=== PATIENT | male | born 1940 | race Caucasian/White ===

== ENCOUNTER 2017-10-12 08:45 | Outpatient (RCR) | payer MEDICARE, OTHER, SELFPAY ==
[2017-10-12 09:29] LABS: International Normalized Ratio 2.6; Prothrombin Time (Protime)PT. 26.8 SECONDS (11.7-14.9)
== END 2017-10-12 09:00 | disposition home or self-care (01) ==
LOC: LAB 08:45
PROVIDERS: Family Provider Family Medicine; PCP Family Medicine; Visit Provider Internal Medicine Cardiovascular Disease
DX: I48.91 Unspecified atrial fibrillation (principal); Z95.2 Presence of prosthetic heart valve; Z79.899 Other long term (current) drug therapy
CPT/HCPCS: 36415; 85610

== ENCOUNTER 2017-11-12 10:06 | Outpatient (RCR) | payer MEDICARE, OTHER, SELFPAY ==
[2017-11-12 11:14] LABS: International Normalized Ratio 2.6; Prothrombin Time (Protime)PT. 27.1 SECONDS (11.7-14.9)
== END 2017-11-12 10:45 | disposition home or self-care (01) ==
LOC: LAB 10:06
PROVIDERS: Family Provider Family Medicine; PCP Family Medicine; Visit Provider Internal Medicine Cardiovascular Disease
DX: I48.91 Unspecified atrial fibrillation (principal); Z95.2 Presence of prosthetic heart valve; Z79.899 Other long term (current) drug therapy
CPT/HCPCS: 36415; 85610

== ENCOUNTER 2017-12-10 09:51 | Outpatient (RCR) | payer MEDICARE, OTHER, SELFPAY ==
[2017-12-10 10:41] LABS: Prothrombin Time (Protime)PT. 31.5 SECONDS (11.7-14.9)
== END 2017-12-10 10:00 | disposition home or self-care (01) ==
LOC: LAB 09:51
PROVIDERS: Family Provider Family Medicine; PCP Family Medicine; Visit Provider Internal Medicine Cardiovascular Disease
DX: I48.91 Unspecified atrial fibrillation (principal); Z95.2 Presence of prosthetic heart valve; Z79.899 Other long term (current) drug therapy
CPT/HCPCS: 36415; 85610

== ENCOUNTER 2018-01-10 08:41 | Outpatient (RCR) | payer MEDICARE, OTHER, SELFPAY ==
[2018-01-10 10:22] LABS: International Normalized Ratio 2.8; Prothrombin Time (Protime)PT. 29.6 SECONDS (11.7-14.9)
== END 2018-01-10 09:00 | disposition home or self-care (01) ==
LOC: LAB 08:41
PROVIDERS: Family Provider Family Medicine; PCP Family Medicine; Visit Provider Internal Medicine Cardiovascular Disease
DX: I48.91 Unspecified atrial fibrillation (principal); Z95.2 Presence of prosthetic heart valve; Z79.899 Other long term (current) drug therapy
CPT/HCPCS: 36415; 85610

== ENCOUNTER → 2018-01-21 08:25 | Outpatient (CLI) | payer MEDICARE, OTHER, SELFPAY ==
[2018-01-21 10:07] LABS: AST(SGOT) 28 U/L (15-37); Alanine Aminotransfer ALT/SGPT 12 U/L (16-61); Albumin, Serum 3.8 g/dL (3.2-5.0); Alkaline Phosphatase 99 U/L (45-117); Bilirubin, Direct 0.18 mg/dL (0.00-0.30); Cholesterol 104 mg/dL (200); Globulin 3.2 g/dL (2.2-4.2); High Density Lipoprotein 43 mg/dL; Triglycerides 76 mg/dL; Very Low Density Lipoprotein 15 mg/dL (5-40)
== END ==
PROVIDERS: Family Provider Family Medicine; PCP Family Medicine; Visit Provider Physician Assistant Medical
DX: E78.5 Hyperlipidemia, unspecified (principal); Z79.899 Other long term (current) drug therapy
CPT/HCPCS: 36415; 80061; 80076

== ENCOUNTER 2018-02-09 07:09 | Outpatient (RCR) | payer MEDICARE, OTHER, SELFPAY ==
[2018-02-09 08:29] LABS: International Normalized Ratio 3.3; Prothrombin Time (Protime)PT. 33.9 SECONDS (11.7-14.9)
== END 2018-02-09 08:00 | disposition home or self-care (01) ==
LOC: LAB 07:09
PROVIDERS: Family Provider Family Medicine; PCP Family Medicine; Visit Provider Internal Medicine Cardiovascular Disease
DX: I48.91 Unspecified atrial fibrillation (principal); Z95.2 Presence of prosthetic heart valve; Z79.899 Other long term (current) drug therapy
CPT/HCPCS: 36415; 85610

== ENCOUNTER 2018-04-08 09:08 | Outpatient (RCR) | payer MEDICARE, OTHER, SELFPAY ==
[2018-04-08 09:36] LABS: Absolute Lymphocyte Count 1.74 X10^3/ul (0.83-4.51); Basophil# 0.04 X10^3/uL; Basophil% 0.5 % (0-1); Eosinophil# 1.12 X10^3/uL; Eosinophils% 13.1 % (0-5); Hemoglobin 12.8 g/dl (13.0-16.5); Lymphocyte # 1.74 X10^3/ul (4.0); Lymphocyte % 20.3 % (19-41); Mean Corp Hgb Conc 32.8 g/gl (32-36); Mean Corpuscular Volume 91.5 fL (80-94); Mean Platelet Vol. 11.5 fl (6.2-12.0); Monocyte# 0.65 X10^3/uL; Monocyte% 7.6 % (0-10); Neutrophil # 5.01 X10^3/uL (2.7-7.7); Neutrophil % 58.4 % (47-70); Platelet Count 176 K/mm3 (150-450); RBC Distribution Width CV 12.9 % (11.6-14.6); RBC Distribution Width SD 43.1 fl (35.1-43.9); Red Blood Count 4.26 M/mm3 (4.6-6.2); White Blood Count 8.6 K/mm3 (4.4-11.0)
[2018-04-08 09:47] LABS: POSITIVE COUNT NO; POSITIVE DIFFERENTIAL NO; POSITIVE MORPHOLOGY NO
[2018-04-08 10:00] LABS: Anion Gap 6 (5-15); BUN 16 mg/dL (7-18); BUN/Creat Ratio 18.3 RATIO (10-20); Calcium,Total 8.8 mg/dL (8.5-10.1); Chloride 106 mmol/L (98-107); Creatinine, Serum 0.87 mg/dL (0.70-1.30); EST Glomerular Filtration Rate 90 mL/min (>60); Est Glom Filt Rate - Afr Amer 109 mL/min (>60); Glucose 101 mg/dL (74-106); Potassium 4.6 mmol/L (3.5-5.1); Sodium Level 143 mmol/L (136-145)
[2018-04-08 10:42] LABS: Prothrombin Time (Protime)PT. 44.7 SECONDS (11.7-14.9)
[2018-04-08 10:56] LABS: International Normalized Ratio 4.7
== END 2018-04-08 10:00 | disposition home or self-care (01) ==
LOC: LAB 09:08
PROVIDERS: Family Provider Family Medicine; PCP Family Medicine; Visit Provider Internal Medicine Cardiovascular Disease
DX: I48.91 Unspecified atrial fibrillation (principal); Z95.2 Presence of prosthetic heart valve; Z79.899 Other long term (current) drug therapy
CPT/HCPCS: 36415; 80048; 85025; 85610

== ENCOUNTER 2018-05-04 07:42 | Outpatient (RCR) | payer MEDICARE, OTHER, SELFPAY ==
[2018-04-11 09:14] LABS: International Normalized Ratio 1.7; Prothrombin Time (Protime)PT. 20.3 SECONDS (11.7-14.9)
[2018-04-18 11:20] LABS: Prothrombin Time (Protime)PT. 38.2 SECONDS (11.7-14.9)
[2018-04-18 11:21] LABS: International Normalized Ratio 3.9
[2018-04-25 10:26] LABS: Prothrombin Time (Protime)PT. 48.9 SECONDS (11.7-14.9)
[2018-04-25 10:28] LABS: International Normalized Ratio 5.3
[2018-04-27 09:47] LABS: International Normalized Ratio 2.3
[2018-05-04 09:13] LABS: International Normalized Ratio 3.3; Prothrombin Time (Protime)PT. 33.6 SECONDS (11.7-14.9)
== END 2018-05-04 09:00 | disposition home or self-care (01) ==
LOC: LAB 07:42
PROVIDERS: Family Provider Family Medicine; PCP Family Medicine; Visit Provider Internal Medicine Cardiovascular Disease
DX: I48.91 Unspecified atrial fibrillation (principal); Z95.2 Presence of prosthetic heart valve; Z79.899 Other long term (current) drug therapy
CPT/HCPCS: 36415; 85610

== ENCOUNTER 2018-05-30 08:46 | Outpatient (RCR) | payer MEDICARE, OTHER, SELFPAY ==
[2018-05-18 10:27] LABS: International Normalized Ratio 4.4
[2018-05-23 09:35] LABS: International Normalized Ratio 3.1; Prothrombin Time (Protime)PT. 31.9 SECONDS (11.7-14.9)
[2018-05-30 09:46] LABS: International Normalized Ratio 2.7
== END 2018-06-13 09:42 | disposition home or self-care (01) ==
LOC: LAB 08:46
PROVIDERS: Family Provider Family Medicine; PCP Family Medicine; Visit Provider Internal Medicine Cardiovascular Disease
DX: I48.91 Unspecified atrial fibrillation (principal); Z95.2 Presence of prosthetic heart valve; Z79.01 Long term (current) use of anticoagulants
CPT/HCPCS: 36415; 85610

== ENCOUNTER 2018-06-14 09:43 | Outpatient (RCR) | payer MEDICARE, OTHER, SELFPAY ==
[2018-06-14 11:17] LABS: Prothrombin Time (Protime)PT. 31.2 SECONDS (11.7-14.9)
== END 2018-06-14 11:00 | disposition home or self-care (01) ==
LOC: LAB 09:43
PROVIDERS: Family Provider Family Medicine; PCP Family Medicine; Visit Provider Internal Medicine Cardiovascular Disease
DX: I48.91 Unspecified atrial fibrillation (principal); Z95.2 Presence of prosthetic heart valve; Z79.01 Long term (current) use of anticoagulants
CPT/HCPCS: 36415; 85610

== ENCOUNTER 2018-07-14 08:59 | Outpatient (RCR) | payer MEDICARE, OTHER, SELFPAY ==
[2018-07-14 09:44] LABS: International Normalized Ratio 3.2; Prothrombin Time (Protime)PT. 33.1 SECONDS (11.7-14.9)
[2018-07-14 10:03] LABS: AST(SGOT) 21 U/L (15-37); Alanine Aminotransfer ALT/SGPT 15 U/L (16-61); Albumin, Serum 3.7 g/dL (3.2-5.0); Alkaline Phosphatase 95 U/L (45-117); Cholesterol 107 mg/dL (200); Globulin 3.4 g/dL (2.2-4.2); High Density Lipoprotein 43 mg/dL; Protein, Total 7.1 g/dL (6.4-8.2); Triglycerides 91 mg/dL; Very Low Density Lipoprotein 18 mg/dL (5-40)
== END 2018-07-14 10:00 | disposition home or self-care (01) ==
LOC: LAB 08:59
PROVIDERS: Physician Assistant Medical; Family Provider Family Medicine; PCP Family Medicine; Referring Provider Internal Medicine Cardiovascular Disease; Visit Provider Internal Medicine Cardiovascular Disease
DX: I48.91 Unspecified atrial fibrillation (principal); E78.5 Hyperlipidemia, unspecified; Z95.2 Presence of prosthetic heart valve; Z79.01 Long term (current) use of anticoagulants
CPT/HCPCS: 80061; 80076; 85610

== ENCOUNTER 2018-08-29 08:38 | Outpatient (RCR) | payer MEDICARE, OTHER, SELFPAY ==
[2018-08-15 10:00] LABS: International Normalized Ratio 2.2; Prothrombin Time (Protime)PT. 24.8 SECONDS (11.7-14.9)
[2018-08-29 10:30] LABS: International Normalized Ratio 2.8; Prothrombin Time (Protime)PT. 29.5 SECONDS (11.7-14.9)
== END 2018-09-12 08:35 | disposition home or self-care (01) ==
LOC: LAB 08:38
PROVIDERS: Family Provider Family Medicine; PCP Family Medicine; Referring Provider Internal Medicine Cardiovascular Disease; Visit Provider Internal Medicine Cardiovascular Disease
DX: I48.91 Unspecified atrial fibrillation (principal); Z95.2 Presence of prosthetic heart valve; Z79.01 Long term (current) use of anticoagulants
CPT/HCPCS: 36415; 85610

== ENCOUNTER 2018-10-10 08:26 | Outpatient (RCR) | payer MEDICARE, OTHER, SELFPAY ==
[2018-09-12 09:25] LABS: International Normalized Ratio 2.2; Prothrombin Time (Protime)PT. 24.1 SECONDS (11.7-14.9)
[2018-09-26 09:09] LABS: International Normalized Ratio 2.2; Prothrombin Time (Protime)PT. 24.4 SECONDS (11.7-14.9)
[2018-10-10 10:36] LABS: International Normalized Ratio 2.7; Prothrombin Time (Protime)PT. 28.5 SECONDS (11.7-14.9)
== END 2018-10-10 09:00 | disposition home or self-care (01) ==
LOC: LAB 08:26
PROVIDERS: Family Provider Family Medicine; PCP Family Medicine; Referring Provider Internal Medicine Cardiovascular Disease; Visit Provider Internal Medicine Cardiovascular Disease
DX: I48.91 Unspecified atrial fibrillation (principal); Z95.2 Presence of prosthetic heart valve; Z79.01 Long term (current) use of anticoagulants
CPT/HCPCS: 36415; 85610

== ENCOUNTER 2018-10-31 11:16 | Outpatient (RCR) | payer MEDICARE, OTHER, SELFPAY ==
[2018-10-31 12:42] LABS: Prothrombin Time (Protime)PT. 31.6 SECONDS (11.7-14.9)
--- OUTSIDE RECORDS SUMMARY | 2019-01-02 21:39 | XMS RPT_ITS ---
:1940 Author Organization OHIP Support Name Relationship Address Phone VERONICA MEDRANO Unavailable [address] + [place] [address] MITCHELL, MATEO Unavailable [address] + [place] [address] R Unavailable Unavailable Unavailable MITCHELL, VERONICA Unavailable [address] [place] [address] RD + [place] [address] MITCHELL, MATEO Unavailable [address] + [place] [address] R Unavailable Unavailable Unavailable MITCHELL, VERONICA Unavailable [address] [place] [address] RD + [place] [address] MITCHELL, MATEO Unavailable [address] + [place] [address] R Unavailable Unavailable Unavailable MITCHELL, VERONICA Unavailable [address] + [place] [address] MITCHELL, MATEO Unavailable [address] + [place] [address] R Unavailable Unavailable Unavailable MITCHELL, VERONICA Unavailable [address] + [place] [address] MITCHELL, MATEO Unavailable [address] + [place] [address] R Unavailable Unavailable Unavailable MITCHELL, VERONICA Unavailable [address] + [place] [address] MITCHELL, MATEO Unavailable [address] + [place] [address] R Unavailable Unavailable Unavailable MITCHELL, VERONICA Unavailable [address] + [place] [address] MITCHELL, MATEO Unavailable [address] + [place] [address] R Unavailable Unavailable Unavailable MITCHELL, VERONICA Unavailable [address] + [place] [address] MITCHELL, MATEO Unavailable [address] + [place] [address] R Unavailable Unavailable Unavailable MITCHELL, VERONICA Unavailable [address] [place] [address] RD [phone] [place] [address] MITCHELL, MATEO Unavailable [address] + [place] [address] R Unavailable Unavailable Unavailable MITCHELL, VERONICA Unavailable [address] [place] [address] RD [phone] [place] [address] MITCHELL, MATEO Unavailable [address] + [place] [address] R Unavailable Unavailable Unavailable MITCHELL, VERONICA Unavailable [address] [place] [address] RD [phone] [place] [address] MITCHELL, MATEO Unavailable [address] + [place] [address] R Unavailable Unavailable Unavailable MITCHELL, VERONICA Unavailable [address] [place] [address] RD [phone] [place] [address] MITCHELL, MATEO Unavailable [address] + [place] [address] R Unavailable Unavailable Unavailable MITCHELL, VERONICA Unavailable [address] [place] [address] RD [phone] [place] [address] MITCHELL, MATEO Unavailable [address] + [place] [address] R Unavailable Unavailable Unavailable MITCHELL, VERONICA Unavailable [address] [place] [address] RD [phone] [place] [address] MITCHELL, MATEO Unavailable [address] + [place] [address] R Unavailable Unavailable Unavailable MITCHELL, VERONICA Unavailable [address] [place] [address] RD [phone] [place] [address] MITCHELL, MATEO Unavailable [address] + [place] [address] R Unavailable Unavailable Unavailable MITCHELL, VERONICA Unavailable [address] [place] [address] RD [phone] [place] [address] MITCHELL, MATEO Unavailable [address] + [place] [address] R Unavailable Unavailable Unavailable VERONICA MEDRANO Unavailable [address] [phone] [place] [address] MATEO MEDRANO Unavailable [address] + [place] [address] R Unavailable Unavailable Unavailable Care Team Providers Name Role Phone Will, Penryn Attending Unavailable Will, Penryn Referring Unavailable Herrera, Oneal Primary Care Unavailable Will, Penryn Attending Unavailable Herrera, Oneal Primary Care Unavailable Will, Jarek Attending Unavailable Will, Penryn Referring Unavailable Herrera, Oneal Primary Care Unavailable Will, Penryn Attending Unavailable Herrera, Oneal Primary Care Unavailable Will, Penryn Referring Unavailable Will, Jarek Attending Unavailable Will, Penryn Referring Unavailable Herrera, Oneal Primary Care Unavailable Will, Jarek Attending Unavailable Will, Jarek Referring Unavailable Herrera, Oneal Primary Care Unavailable Radha Byrd Attending Unavailable Olga Weldon Attending Unavailable Olga Weldon Referring Unavailable Herrera, Oneal Primary Care Unavailable Will, Penryn Attending Unavailable Herrera, Oneal Referring Unavailable Herrera, Oneal Primary Care Unavailable Will, Jarek Attending Unavailable Will, Jarek Referring Unavailable Herrera, Oneal Primary Care Unavailable Will, Jraek Attending Unavailable Will, Jarek Referring Unavailable Herrera, Oneal Primary Care Unavailable Will, Penryn Attending Unavailable Will, Penryn Referring Unavailable Herrera, Oneal Primary Care Unavailable Will, Penryn Attending Unavailable Will, Penryn Referring Unavailable Herrera, Oneal Primary Care Unavailable Will, Penryn Attending Unavailable Will, Penryn Referring Unavailable Herrera, Oneal Primary Care Unavailable Will, Penryn Attending Unavailable Will, Jarek Referring Unavailable Herrera, Oneal Primary Care Unavailable Will, Jarek Attending Unavailable Will, Jarek Referring Unavailable Herrera, Oneal Primary Care Unavailable Will, Jarek Attending Unavailable Will, Jarek Referring Unavailable Herrera, Oneal Primary Care Unavailable PROBLEMS PROBLEMS DATE TYPE CONDITION / CODE ATTENDING STATUS SOURCE 10/10/2018 Unknown I48.91 - Unspecified Will, Jarek Active [facility] atrial fibrillation / Community I48.91(ICD-10) Hospital Repository 08/11/2018 Unknown E78.5 - Will, Penryn Active [facility] Hyperlipidemia, Community unspecified / Hospital E78.5(ICD-10) Repository 07/14/2018 Unknown Z79.01 - longterm Will, Jarek Active [facility] (current) use of [facility] anticoagulants / Hospital Z79.01(ICD-10) Repository 04/08/2018 Unknown I48.1 - Persistent Will, Jarek Active [facility] atrial fibrillation / Community I48.1(ICD-10) Hospital Repository 04/08/2018 Unknown G20 - Parkinson's Will, Penryn Active [facility] disease / G20(ICD-10) [facility] Repository 04/08/2018 Unknown 332.0 - Paralysis Will, Penryn Active [facility] agitans / Community 332.0(ICD-9) Hospital Repository 04/08/2018 Unknown I10 - Essential Will, Jarek Active [facility] (primary) [facility] hypertension / Hospital I10(ICD-10) Repository 04/08/2018 Unknown 401.1 - Benign Will, Penryn Active [facility] essential [facility] hypertension / Hospital 401.1(ICD-9) Repository 03/10/2018 Unknown I48.0 - Paroxysmal Will, Jarek Active [facility] atrial fibrillation / Community I48.0(ICD-10) Hospital Repository 01/25/2018 Unknown I25.10 - Will, Penryn Active [facility] 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 [facility] coronary artery Repository without angina pectoris / I25.10(ICD-10) 01/25/2018 Unknown Z95.2 - Presence of Will, Jarek Active [facility] prosthetic heart [facility] valve / Z95.2(ICD-10) Hospital Repository 01/21/2018 Unknown Z79.899 - Other long Weldon, Active [facility] term (current) drug Olga Bender [facility] therapy / Hospital Z79.899(ICD-10) Repository PROCEDURES PROCEDURES No Procedure Records FoundRESULTS RESULTS PROTHROMBIN TIME W/INR Collected: 10/31/2018 Status: F Source: [place] 11:25 AM [facility] REPOSITORY TYPE CODE TESTS RESULT OUT OF RANGE REFERENCE UNITS LAB L300.4150 11.7-14.9 SECONDS High PROTIME 31.6 LAB L300.4200 Normal INR 3.0 Performed By: #### L300.3900 #### [facility] [address] [place], [address] PROTHROMBIN TIME W/INR Collected: 10/10/2018 Status: F Source: [place] 8:27 AM [facility] REPOSITORY TYPE CODE TESTS RESULT OUT OF RANGE REFERENCE UNITS LAB L300.4150 11.7-14.9 SECONDS High PROTIME 28.5 LAB L300.4200 Normal INR 2.7 Performed By: #### L300.3900 #### [facility] [address] [place], [place], [address] PROTHROMBIN TIME W/INR Collected: 09/26/2018 Status: F Source: [place] 8:32 AM [facility] REPOSITORY TYPE CODE TESTS RESULT OUT OF RANGE REFERENCE UNITS LAB L300.4150 11.7-14.9 SECONDS High PROTIME 24.4 LAB L300.4200 Normal INR 2.2 Performed By: #### L300.3900 #### [facility] [address] [place], [address] PROTHROMBIN TIME W/INR Collected: 09/12/2018 Status: F Source: [place] 8:39 AM [facility] REPOSITORY TYPE CODE TESTS RESULT OUT OF RANGE REFERENCE UNITS LAB L300.4150 11.7-14.9 SECONDS High PROTIME 24.1 LAB L300.4200 Normal INR 2.2 Performed By: #### L300.3900 #### [facility] [address] [place], [address] PROTHROMBIN TIME W/INR Collected: 08/29/2018 Status: F Source: [place] 8:45 AM [facility] REPOSITORY TYPE CODE TESTS RESULT OUT OF RANGE REFERENCE UNITS LAB L300.4150 11.7-14.9 SECONDS High PROTIME 29.5 LAB L300.4200 Normal INR 2.8 Performed By: #### L300.3900 #### [facility] [address] [place], [address] PROTHROMBIN TIME W/INR Collected: 08/15/2018 Status: F Source: [place] 8:10 AM [facility] REPOSITORY TYPE CODE TESTS RESULT OUT OF RANGE REFERENCE UNITS LAB L300.4150 11.7-14.9 SECONDS High PROTIME 24.8 LAB L300.4200 Normal INR 2.2 Performed By: #### L300.3900 #### [facility] [address] [place], [place], [address] PROTHROMBIN TIME W/INR Collected: 07/14/2018 Status: F Source: [place] 9:13 AM [facility] REPOSITORY Order Comment: LIVER LIPID FOR OLGA WELDON [facility] PT FOR DR WILL CARRILLO TYPE CODE TESTS RESULT OUT OF RANGE REFERENCE UNITS LAB L300.4150 11.7-14.9 SECONDS High PROTIME 33.1 LAB L300.4200 Normal INR 3.2 Performed By: #### L300.3900 #### [facility] [address] [place], [place], [id number] LIVER PROFILE Collected: 07/14/2018 Status: F Source: [place] 9:12 AM [facility] REPOSITORY Order Comment: LIVER LIPID FOR OLGA WELDON [facility] PT FOR DR WILL CARRILLO TYPE CODE TESTS RESULT OUT OF RANGE REFERENCE UNITS LAB L501.1500 6.4-8.2 g/dL Normal T PROT 7.1 LAB L501.1800 3.2-5.0 g/dL Normal ALB 3.7 LAB L501.1950 2.2-4.2 g/dL Normal GLOB 3.4 LAB L501.4100 15-37 U/L Normal AST 21 LAB L501.4305 45-117 U/L Normal ALK P 95 LAB L501.4405 16-61 U/L Low ALT 15 LAB L501.4600 0.20-1.00 mg/dL Normal T BILI 0.80 LAB L501.4700 0.00-0.30 mg/dL Normal D BILI 0.20 Performed By: #### L500.3400, L500.4100 #### [facility] [address] [place], [place], [id number] LIPID PROFILE Collected: 07/14/2018 Status: F Source: [place] 9:12 AM [facility] REPOSITORY Order Comment: LIVER LIPID FOR OLGA WELDON WH[facility] PT FOR DR WILL CARRILLO TYPE CODE TESTS RESULT OUT OF RANGE REFERENCE UNITS LAB L501.4900 200 mg/dL Normal CHOL 107 Result Comment: <200 mg/dL Desirable 200-240 mg/dL Borderline >240 mg/dL High Risk LAB L501.5000 mg/dL Normal TRIG 91 Result Comment: The drugs N-Acetylcysteine and Metamizole may falsely depress this assay. Serum Triglycerides Reference Interval Normal <150 mg/dL Borderline high 150 - 199 mg/dL High 200 - 499 mg/dL Very High > or = 500 mg/dL LAB L501.6400 mg/dL Normal HDL 43 Result Comment: The drugs N-Acetylcysteine and Metamizole may falsely depress this assay. Reference Range HDL <40 mg/dL Low HDL Cholesterol HDL >or= 60 mg/dL High HDL Cholesterol LAB L501.6500 0-130 mg/dL Normal LDL 46 LAB L501.6600 5-40 mg/dL Normal VLDL 18 Performed By: #### L500.3400, L500.4100 #### [facility] [address] [place], [address] PROTHROMBIN TIME W/INR Collected: 06/14/2018 Status: F Source: [place] 9:50 AM [facility] REPOSITORY TYPE CODE TESTS RESULT OUT OF RANGE REFERENCE UNITS LAB L300.4150 11.7-14.9 SECONDS High PROTIME 31.2 LAB L300.4200 Normal INR 3.0 Performed By: #### L300.3900 #### [facility] [address] [place], [address] PROTHROMBIN TIME W/INR Collected: 05/30/2018 Status: F Source: [place] 9:04 AM [facility] REPOSITORY TYPE CODE TESTS RESULT OUT OF RANGE REFERENCE UNITS LAB L300.4150 11.7-14.9 SECONDS High PROTIME 29.0 LAB L300.4200 Normal INR 2.7 Performed By: #### L300.3900 #### [facility] [address] [place], [address] PROTHROMBIN TIME W/INR Collected: 05/23/2018 Status: F Source: [place] 8:27 AM [facility] REPOSITORY Order Comment: Comments: STANDING ORDER Comments: STANDING ORDER TYPE CODE TESTS RESULT OUT OF RANGE REFERENCE UNITS LAB L300.4150 11.7-14.9 SECONDS High PROTIME 31.9 LAB L300.4200 Normal INR 3.1 Performed By: #### L300.3900 #### [facility] [address] [place], [address] PROTHROMBIN TIME W/INR Collected: 05/18/2018 Status: F Source: [place] 9:27 AM [facility] REPOSITORY TYPE CODE TESTS RESULT OUT OF REFERENCE UNITS RANGE LAB L300.4150 11.7-14.9 SECONDS High PROTIME 42.0 LAB L300.4200 High alert INR 4.4 Result Comment: CRITICAL VALUE VERIFIED. CALLED TO SINDY MELGAR 05/18/18 Aarti Stein. RESULTS READ BACK BY SINDY . Performed By: #### L300.3900 #### [facility] [address] [place] [address]. [place], [place], [address] PROTHROMBIN TIME W/INR Collected: 05/04/2018 Status: F Source: [place] 7:43 AM [facility] REPOSITORY TYPE CODE TESTS RESULT OUT OF RANGE REFERENCE UNITS LAB L300.4150 11.7-14.9 SECONDS High PROTIME 33.6 LAB L300.4200 Normal INR 3.3 Performed By: #### L300.3900 #### [facility] [facility] [place], [address] PROTHROMBIN TIME W/INR Collected: 04/27/2018 Status: F Source: [place] 8:23 AM [facility] REPOSITORY TYPE CODE TESTS RESULT OUT OF RANGE REFERENCE UNITS LAB L300.4150 11.7-14.9 SECONDS High PROTIME 25.0 LAB L300.4200 Normal INR 2.3 Performed By: #### L300.3900 #### [facility] [address] [place] [address] [place], [address] PROTHROMBIN TIME W/INR Collected: 04/25/2018 Status: F Source: [place] 9:15 AM [facility] REPOSITORY TYPE CODE TESTS RESULT OUT OF REFERENCE UNITS RANGE LAB L300.4150 11.7-14.9 SECONDS High PROTIME 48.9 LAB L300.4200 High alert INR 5.3 Result Comment: CRITICAL VALUE VERIFIED. CALLED TO [facility] 04/25/18 1027 Leandro Stein. RESULTS READ BACK BY WILFREDO . Performed By: #### L300.3900 #### [facility] [address] [place], [address] PROTHROMBIN TIME W/INR Collected: 04/18/2018 Status: F Source: [place] 9:14 AM [facility] REPOSITORY TYPE CODE TESTS RESULT OUT OF REFERENCE UNITS RANGE LAB L300.4150 11.7-14.9 SECONDS High PROTIME 38.2 LAB L300.4200 High alert INR 3.9 Result Comment: CRITICAL VALUE VERIFIED. CALLED TO SINDY AT 'S OFFICE. 04/18/18 1121 Cain Jaime. RESULTS READ BACK BY SAME. Performed By: #### L300.3900 #### [facility] [address] [place], [address] PROTHROMBIN TIME W/INR Collected: 04/11/2018 Status: F Source: [place] 8:01 AM [facility] REPOSITORY TYPE CODE TESTS RESULT OUT OF RANGE REFERENCE UNITS LAB L300.4150 11.7-14.9 SECONDS High PROTIME 20.3 LAB L300.4200 Normal INR 1.7 Performed By: #### L300.3900 #### [facility] [address] [place], [address] CBC W/DIFF, AUTOMATED Collected: 04/08/2018 Status: F Source: [place] 9:13 AM [facility] REPOSITORY Order Comment: Order Date: 02/07/18 Order Info: 0184-1 - CBCD TYPE CODE TESTS RESULT OUT OF RANGE REFERENCE UNITS LAB L100.1000 4.4-11.0 K/mm3 Normal WBC 8.6 LAB L100.1200 4.6-6.2 M/mm3 Low RBC 4.26 LAB L100.1300 13.0-16.5 g/dl Low HGB 12.8 LAB L100.1400 40-54 % Low HCT 39.0 LAB L100.1500 80-94 fL Normal MCV 91.5 LAB L100.1600 27.0-32.0 pg Normal MCH 30.0 LAB L100.1700 32-36 g/gl Normal MCHC 32.8 LAB L100.1810 11.6-14.6 % Normal RDW CV 12.9 LAB L100.1820 35.1-43.9 fl Normal RDW SD 43.1 LAB L100.1900 150-450 K/mm3 Normal PLT 176 LAB L100.2000 6.2-12.0 fl Normal MPV 11.5 LAB L100.2100 47-70 % Normal NEUT% 58.4 LAB L100.2200 19-41 % Normal LY% 20.3 LAB L100.2300 0-10 % Normal MONO% 7.6 LAB L100.2400 0-5 % High EO% 13.1 LAB L100.2500 0-1 % Normal BASO% 0.5 LAB L100.2550 0.0-0.9 % Normal IM GRAN % 0.100 Result Comment: IG% - Immature Granulocytes (promyelocytes, myelocytes and metamyelocytes) > 1% indicates that a LEFT SHIFT is Present. LAB L100.2620 2.0-7.7 X10 3/uL Normal Absolute Neut 5.0 LAB L100.2720 0.83-4.51 X10 3/ul Normal Absolute Lymph 1.74 Performed By: #### L100.0100, L500.2500 #### [facility] [address] [place], [address] BASIC METABOLIC Collected: 04/08/2018 Status: F Source: [place] PROFILE ([facility]) 9:13 AM [facility] REPOSITORY Order Comment: Order Date: 02/07/18 Order Info: 0667-1 - [facility] TYPE CODE TESTS RESULT OUT OF RANGE REFERENCE UNITS LAB L501.0100 74-106 mg/dL Normal GLU 101 Result Comment: Fasting Glucose result from 100 to 125 mg/dL suggests IMPAIRED HOMEOSTASIS per A.D.A. criteria. Please note revised GLUCOSE reference range effective 2017. LAB L501.1000 7-18 mg/dL Normal BUN 16 LAB L501.1100 0.70-1.30 mg/dL Normal CREAT,SERUM 0.87 Result Comment: The validity of the calculated GFR AND GFRAA in patients over 70 years has not been determined. Clinical correlation is essential. LAB L501.1110 >60 mL/min Normal EST GFR 90 Result Comment: Non- GFR Calc LAB L501.1115 >60 mL/min Normal EST GFR - AA 109 Result Comment: GFR Calc LAB L501.1300 10-20 RATIO Normal BUN/CRE 18.3 LAB L501.2200 8.5-10.1 mg/dL CA Normal 8.8 LAB L501.5300 136-145 mmol/L NA Normal 143 LAB L501.5600 3.5-5.1 mmol/L K Normal 4.6 LAB L501.5900 98-107 mmol/L CL Normal 106 LAB L501.6100 21.0-32.0 mmol/L Normal CO2 31.0 LAB L501.6200 5-15 Normal GAP 6 Performed By: #### L100.0100, L500.2500 #### [facility] [address] [place], [place], [address] PROTHROMBIN TIME W/INR Collected: 04/08/2018 Status: F Source: [place] 9:10 AM [facility] REPOSITORY TYPE CODE TESTS RESULT OUT OF REFERENCE UNITS RANGE LAB L300.4150 11.7-14.9 SECONDS High PROTIME 44.7 LAB L300.4200 High alert INR 4.7 Result Comment: CRITICAL VALUE VERIFIED. CALLED TO SINDY MASON 04/08/18 1055 Danitza Martell. RESULTS READ BACK BY SAME . Performed By: #### L300.3900 #### [facility] [address] [place], [place], [address] PROTHROMBIN TIME W/INR Collected: 02/09/2018 Status: F Source: [place] 7:13 AM [facility] REPOSITORY TYPE CODE TESTS RESULT OUT OF RANGE REFERENCE UNITS LAB L300.4150 11.7-14.9 SECONDS High PROTIME 33.9 LAB L300.4200 Normal INR 3.3 Performed By: #### L300.3900 #### [facility] [address] [place], [address] CARDIOLOGY VISIT Observed: 01/25/2018 Status: F Source: [place] REPORT 11:02 AM [facility] REPOSITORY [facility] [address] [place] [address] OFFICE VISIT Date of Service: 01/25/18 MR#: [id number] Acct: [id number] Name: BILL MEDRANO Rep #: [id number] : 1940 Provider: Jarek Solis MD Age/Sex: 77/M Location: [facility] Status: Signed HPI HPI Chief Complaint: Follow-up visit and dizziness. Details: BILL MEDRANO, is a 77 M who presents to the office today for a follow-up visit as well as a complaint of dizziness. He is a gentleman with a history of aortic valve disease status post mechanical aortic valve replacement with a [address] [employer] mechanical prosthetic valve in 2000. He has been doing well from the cardiovascular standpoint but says that more recently he has had some dizziness fatigue as well as tinnitus. He has also been diagnosed with Parkinson's recently. He has not had any follow-up with an ENT physician. He denies any chest pain has not had any shortness breath or paroxysmal nocturnal dyspnea or pedal edema and has not had any palpitations no near syncope or syncope. He has been compliant with his antibiotic prophylaxis. His physical exam today demonstrates clear lung dudley regular rate and rhythm and no pedal edema his blood pressure is under good control and his electrocardiogram demonstrates sinus rhythm with rate of 64 bpm with poor R-wave progression. Intake Vital Signs01/25/18 Height 5 ft 4.5 in 01/25/18 Weight: 200 lb 01/25/18 Body Mass Index (BMI) 33.7 01/25/18 Blood Pressure 132/60 01/25/18 Blood Pressure Location Lt brachial Intake Visit Reasons: 1 Y FU City Assessor Required: No Accompanied by: Is patient in pain?: No Allergies antifungal cream Adverse Reaction (Uncoded 01/20/18 16:45) blisters Medications Aspirin E.C. [Ecotrin] 81 mg PO DAILY@0800 01/24/16 [History Confirmed 01/25/18] Atorvastatin Calcium [Lipitor] 80 mg PO DAILY 01/24/16 [History Confirmed 01/25/18] Latanoprost 0.005% [Xalatan Opthalmic] 1 drp RIGHT EYE QHS 01/24/16 [History Confirmed 01/25/18] Lisinopril 20 mg PO BID 01/24/16 [History Confirmed 01/25/18] Metoprolol Tartrate [Lopressor (beta ozzy)] 50 mg PO BID 01/24/16 [History Confirmed 01/25/18] Multivitamin [Daily Multiple Vitamin] 1 ea PO DAILY 01/24/16 [History Confirmed 01/25/18] Omeprazole 40 mg PO DAILY 01/24/16 [History Confirmed 01/25/18] Warfarin Sodium 8 mg PO SUFRSA 01/24/16 [History Confirmed 01/25/18] carbidopa 25 mg-levodopa 250 mg disintegrating tablet 1 tab PO BID tab 10/29/17 [History Confirmed 01/25/18] warfarin 10 mg tablet 10 mg PO .QD #90 tab 10/31/17 [Rx Confirmed 01/25/18] acetaminophen 500 mg tablet 1,000 mg PO BID PRN tab 01/20/18 [History Confirmed 01/25/18] amoxicillin 500 mg capsule 2,000 mg PO .COMPLEX PRN 14 Days cap 01/20/18 [History Confirmed 01/25/18] hydrocortisone 2.5 % topical cream 1 applic TOPICAL BID-QID PRN 01/20/18 [History Confirmed 01/25/18] vit C 250 mg-E 200 unit-zinc 40 mg-copper 1 tp-aexpws-jmnsrh capsule 1 tab PO ONCE cap 01/25/18 [History Confirmed 01/25/18] Ejection fraction %: 55 to 59 PFSH Medical History Atrial fibrillation (Chronic) Aortic stenosis (Chronic) CAD (coronary artery disease) (Chronic) HTN (hypertension) (Chronic) HLD (hyperlipidemia) (Chronic) GERD (gastroesophageal reflux disease) (Chronic) Sleep apnea (Chronic) Syncope (Chronic) Surgical History H/O aortic valve replacement (Chronic 01/05/01) History of left knee surgery (Chronic 1989) History of surgery on extremity (Chronic 1998) Hx of eye surgery (Chronic) Family History Mother CAD (coronary artery disease) CVA (cerebral vascular accident) Diabetes Myocardial infarction Father Cancer Brother Cancer lung cancer Sister Rheumatic fever Social History Smoking Status: Former smoker alcohol intake: current substance use type: does not use caffeine: Yes Type: coffee what type of physical activity do you participate in: none seatbelt use: always do you feel safe at home: Yes ROS Const Const: Positive for fatigue; negative for body ache, fever(s), chills, night sweats, daytime sleepiness, difficulty sleeping, weight gain, weight loss, increased appetite, poor appetite, anorexia, other, frequent falls, headache(s), weakness or excessive sweating Eyes Eyes: Positive for other (macular degeneration); negative for blind spots, loss of peripheral vision, transient loss of vision, change in vision, floaters, tunnel vision, blurry vision or double vision ENT ENT: Positive for dizziness and tinnitus; negative for hearing loss, Nosebleed/epistaxis, post nasal drip, bleeding gums, hoarseness, neck pain, dry mouth, other, tongue swelling, lip swelling, balance problems or headache(s) Cardio Chest Pain: No Palpitations: No Edema: None Muscle aches with walking: None Resp Respiratory: Positive for SOB with activity; negative for SOB at rest, SOB orthopnea\SOB lying down, Cough, Coughing up blood/hemoptysis, chest congestion, pain on inspiration, snoring, stridor, wheezing, crackles, paroxysmal nocturnal dyspnea or other GI GI: Negative nausea, vomiting, heartburn, constipation, belching, bloating, cramping, vomiting blood/hematemesis, bright, red blood in stools, black,tarry stools, loose stools, Difficulty Swallowing or other : Negative for hematuria, frequent nighttime urination/ nocturia, erectile dysfunction or abnormal vaginal bleeding Musc Musc: Negative for muscle aches/ myalgia, muscle weakness, joint pain or balance problems Skin Skin: Negative redness, non-healing lesions, rash, unusual bruising, skin ulcer, wounds, jaundice or other Neuro Neuro: Positive for other (TREMORS) and dizziness; negative for lightheadedness, near syncope, syncope, orthostatic symptoms, frequent falls, headache(s), weakness, confusion, memory loss, restless legs, blurry vision, double vision, vertigo, seizures or lack of coordination Massimo Hematologic/Lymphatic: Negative for easy bleeding, easy bruising, enlarged lymph nodes or other Endo Endo: Positive for fatigue; negative for cold intolerance, heat intolerance, excessive sweating, flushing, increased thirst/drinking, increased hunger, hair loss, hair growth or other Psych Psych: Negative for anxiety, depression, thoughts of harming anyone, thoughts of harming yourself, visual hallucinations, panic attacks or audible hallucinations Allergy Allergy/Immunology: Negative for throat swelling, Negative for tongue swelling, Negative for hives, Negative for lip swelling, Negative for rash Cardiology Exam Const Appearance: cooperative, healthy appearing, well developed, well groomed and no acute distress Nutritional Appearance: well nourished and average body habitus Orientation: alert, awake and oriented x3 Head Head: normal to inspection, normocephalic and atraumatic Ears: hearing grossly normal bilaterally and external ears normal Nose: external nose normal, nasal mucous membranes and turbinates normal, nares normal, septum normal, no nasal discharge Face and Sinus: face symmetric Mouth: oral mucosae normal, tongue normal, oropharynx normal and moist mucous membranes Teeth and gingiva: dentition normal Throat: posterior oropharynx normal, tonsils normal and uvula midline Eyes General: appearance normal, both eyes and all related structures Eyelids: eyelids normal Conjunctivae: conjunctivae normal Pupils: PERRL, normal by confrontation and accommodation normal EOM: EOM intact bilaterally Neck Neck: normal visual inspection, trachea midline and no JVD JVD: +5 Carotids: normal carotid upstroke and bounding pulses Chest Chest inspection: normal inspection of the chest, symmetric chest movement and normal respiratory effort Auscultation: Bilateral: Clear to Auscultation Cardio Palpation: normal PMI Rate: regular rate Rhythm: regular rhythm Heart sounds: S1 normal and crisp prosthetic S2 Murmur: Grade 1/6, early systolic and LLSB GI GI: normal to inspection, soft, no hepatosplenomegaly and bowel sounds present Neuro General: alert, awake, oriented x3, no focal sensory deficit, gait normal and moves all extremities Skin Skin: no rashes or lesions noted Extremities Pulses: Normal: Right Femoral Pulse, Left Femoral Pulse, Right Dorsalis Pedis Pulse, Left Dorsalis Pedis Pulse, Right Posterior Tibial Pulse, Left Posterior Tibial Pulse, Right Radial Pulse, Left Radial Pulse Lower Extremity Edema: None: Bilateral Musculoskel Musculoskeletal: No joint tenderness Psych Psychological: normal affect Assessment AND Plan 1. Dizziness R42 Plan The etiology of the above is unclear to me at this time. It does not appear to be orthostatically mediated he does not look anemic and I suspect that it may be related to an inner ear problem. I have asked him to have this evaluated with a ENT physician. 2. H/O aortic valve replacement Z95.2 01/05/2001 [facility] mechanical prosthetic valve 21mm Plan He is status post [facility]'s mechanical prosthetic valve his last echocardiogram performed within the last 2 years demonstrates preserved ejection fraction moderate mitral calcification peak aortic gradient of 19 mmHg and a mean gradient of 10 mmHg. At this time I do not think there is a reason to reevaluate his aortic valve. Orders Orders: 3. Essential hypertension I10 Plan His blood pressure is under excellent control on the current medical therapy there be no reason to make any changes. 4. Pure hypercholesterolemia E78.00; E78.0 Plan His most recent lipid profile demonstrated a total cholesterol of 104, LDL of 46 and HDL of 43. These numbers also look excellent. Thank you for allowing me to participate in the care of your patient. 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) Coding Level of Care Code Off vis,est,level 4 Diagnoses Dizziness R42 H/O aortic valve replacement Z95.2 Essential hypertension I10 Hypertension type: essential hypertension Pure hypercholesterolemia E78.00; E78.0 Hyperlipidemia type: pure hypercholesterolemia Coding Level of Care Code Off vis,est,level 4 Diagnoses Dizziness R42 H/O aortic valve replacement Z95.2 Essential hypertension I10 Hypertension type: essential hypertension Pure hypercholesterolemia E78.00; E78.0 Hyperlipidemia type: pure hypercholesterolemia 01/25/18 1102 <Electronically signed by Jarek Solis MD> Date Jarek Solis MD Cosigner Signature: Date (if applicable) CC: Oneal Herrera MD 12 LEAD EKG PERFORMED Observed: 01/25/2018 Status: F Source: [place] BY BMS 9:18 AM [facility] REPOSITORY [facility] [address] [place] [address] 12 Lead EKG performed by [facility] 01/25/18916 MR#: [id number] Acct: [id number] Name: BILL MEDRANO Rep #: [id number] : 1940 77 From: Jarek Solis MD Attending Dr: Jarek Solis MD Status: DEP AMB Ordering Dr: Jarek Solis MD Date: 01/25/18 Location: [facility] Sex: M C Admitted: [facility]/12 Lead EKG performed by [facility] ECG Report Interpretation Sinus Rhythm Low voltage in precordial leads. -Poor R-wave progression -may be secondary to pulmonary disease consider old anterior infarct. ABNORMAL Electronically signed on 02/10/2018 at 17:08 by Jarek Solis 02/10/18 1710 Date Jarek Solis MD CC: Oneal Herrera MD Date Dictated: 01/25/18916 Date Transcribed: 01/25/18916 [place]: [place] Signed LIVER PROFILE Collected: 01/21/2018 Status: F Source: [place] 8:30 AM [facility] REPOSITORY Order Comment: Order Date: 08/10/17 Order Info: 0788-1 - *Hepatic Function Panel Order Info: [id number] - *Lipid Profile CC PCP Comments: 12 hours fasting, may have water. TYPE CODE TESTS RESULT OUT OF RANGE REFERENCE UNITS LAB L501.1500 6.4-8.2 g/dL Normal T PROT 7.0 LAB L501.1800 3.2-5.0 g/dL Normal ALB 3.8 LAB L501.1950 2.2-4.2 g/dL Normal GLOB 3.2 LAB L501.4100 15-37 U/L Normal AST 28 LAB L501.4305 45-117 U/L Normal ALK P 99 LAB L501.4405 16-61 U/L Low ALT 12 Result Comment: Please note revised ALT reference range effective 2017. LAB L501.4600 0.20-1.00 mg/dL Normal T BILI 0.70 LAB L501.4700 0.00-0.30 mg/dL Normal D BILI 0.18 Performed By: #### L500.3400 #### [facility] [address] [place], [place], [address] LIPID PROFILE Collected: 01/21/2018 Status: F Source: [place] 8:30 AM [facility] REPOSITORY Order Comment: Order Date: 08/10/17 Order Info: 0788-1 - *Hepatic Function Panel Order Info: 90344-2 - *Lipid Profile CC PCP Comments: 12 hours fasting, may have water. TYPE CODE TESTS RESULT OUT OF RANGE REFERENCE UNITS LAB L501.4900 200 mg/dL Normal CHOL 104 Result Comment: <200 mg/dL Desirable 200-240 mg/dL Borderline >240 mg/dL High Risk LAB L501.5000 mg/dL Normal TRIG 76 Result Comment: The drugs N-Acetylcysteine and Metamizole may falsely depress this assay. Serum Triglycerides Reference Interval Normal <150 mg/dL Borderline high 150 - 199 mg/dL High 200 - 499 mg/dL Very High > or = 500 mg/dL LAB L501.6400 mg/dL Normal HDL 43 Result Comment: The drugs N-Acetylcysteine and Metamizole may falsely depress this assay. Reference Range HDL <40 mg/dL Low HDL Cholesterol HDL >or= 60 mg/dL High HDL Cholesterol LAB L501.6500 0-130 mg/dL Normal LDL 46 LAB L501.6600 5-40 mg/dL Normal VLDL 15 Performed By: #### L500.4100 #### [facility] [address] [facility] [address] [place], [place], [address] PROTHROMBIN TIME W/INR Collected: 01/10/2018 Status: F Source: [place] 8:50 AM [facility] REPOSITORY TYPE CODE TESTS RESULT OUT OF RANGE REFERENCE UNITS LAB L300.4150 11.7-14.9 SECONDS High PROTIME 29.6 LAB L300.4200 Normal INR 2.8 Performed By: #### L300.3900 #### [facility] [address] [place], [address] PROTHROMBIN TIME W/INR Collected: 12/10/2017 Status: F Source: [place] 10:00 AM [facility] REPOSITORY TYPE CODE TESTS RESULT OUT OF RANGE REFERENCE UNITS LAB L300.4150 11.7-14.9 SECONDS High PROTIME 31.5 LAB L300.4200 Normal INR 3.0 Performed By: #### L300.3900 #### [facility] [address] [place], [address] PROTHROMBIN TIME W/INR Collected: 11/12/2017 Status: F Source: [place] 10:21 AM [facility] REPOSITORY TYPE CODE TESTS RESULT OUT OF RANGE REFERENCE UNITS LAB L300.4150 11.7-14.9 SECONDS High PROTIME 27.1 LAB L300.4200 Normal INR 2.6 Performed By: #### L300.3900 #### [facility] [address] [place], [address] ALLERGIES ALLERGIES DATE TYPE / CODE NAME / CODE REACTION SEVERITY SOURCE 01/20/2018 Miscellaneous antifungal blisters Unknown [place] Allergy/[id number](S cream [facility] NOMED CT) Hospital Repository 01/24/2016 Drug No Known Unknown [place] Allergy/[id number](S Allergies/F0019 [facility] [place]) [address](RXNORM) Hospital Repository ENCOUNTERS ENCOUNTERS ADMIT/DISCHARGE ACCOUNT ADMITTING ENCOUNTER LOCATION SOURCE NUMBER CLASS 10/31/2018 [id number] Ambulatory [place] 2 [facility] ing:LAB Repository 10/10/2018/ [id number] Ambulatory [place] 8 3 [facility] ing:LAB Repository 08/29/2018/ [id number] Ambulatory [place] 8 8 [facility] ing:LAB Repository 07/14/2018/ [id number] Ambulatory [place] 8 1 [facility] ing:LAB Repository 06/14/2018/ [id number] Ambulatory [place] 8 8 [facility] ing:LAB Repository 05/30/2018/ [id number] Ambulatory [place] 8 1 [facility] ing:LAB Repository 05/04/2018/ [id number] Ambulatory [place] 8 2 [facility] ing:LAB Repository 04/08/2018/ [id number] Ambulatory [place] 8 1 [facility] ing:LAB Repository 02/09/2018/ [id number] Ambulatory [place] 8 7 [facility] ing:LAB Repository 01/25/2018/ [id number] Ambulatory BMSBuilding:B [place] 8 2 [facility] Repository 01/21/2018 [id number] Ambulatory [place] 8 [facility] ing:LAB Repository 01/20/2018 [id number] Ambulatory BMSBuilding:B [place] 3 [facility] Repository 01/10/2018 [id number] Ambulatory [place] 6 [facility] ing:LAB Repository 01/10/2018/ [id number] Ambulatory [place] 8 7 [facility] ing:LAB Repository 12/10/2017/ [id number] Ambulatory [place] 8 4 [facility] ing:LAB Repository 11/12/2017/ [id number] Ambulatory [place] 8 8 [facility] ing:LAB Repository 11/12/2017 [id number] Ambulatory [place] 4 [facility] ing:LAB Repository PAYERS PAYERS ENCOUNTER GUARANTOR PAYER SUBSCRIBER SOURCE 10/31/2018 BILL [place] Primary BILL [place] [id number] Insurance:MEDICARE MEADEDOB: [facility] [id number] Number: Repository [address]Gop: [phone] [id number] [phone] () Date:2018-01-10 10/31/2018 Secondary BILL [place] Insurance:AARPPolicy MEADEDOB: Community Number: [id number] Hospital [id number] Repository Date:5680-78-31[address], [place] [address]SU: 10/31/2018 Tertiary NOT GIVENUNK [place] Insurance:SELF PAY [facility] Number: Effective Repository Date:2018-10-10 10/10/2018 BILL R Primary BILL R [place] [id number] Insurance:MEDICARE MEADEDOB: [facility] PART [facility] [id number] Number: Repository [address]Rvv: 330 [id number] [phone] () Date:2018-01-10 10/10/2018 Secondary BILL R [place] Insurance:AARPPolicy MEADEDOB: Community Number: [id number] Hospital [id number] Repository Date:9249-35-88QL [address], [place] [address]LZ: 10/10/2018 Tertiary NOT GIVENUNK [place] Insurance:SELF PAY [facility] Number: Effective Repository Date:2018-09-12 08/29/2018 BILL R Primary BILL R [place] [id number] Insurance:MEDICARE MEADEDOB: [facility] [id number] Number: Repository [address]Zvv: 330 [id number] [phone] () Date:2018-01-10 08/29/2018 Secondary BILL R [place] Insurance:AARPPolicy MEADEDOB: Community Number: [id number] Hospital [id number] Repository Date:1753-96-06OM [address], [place] [address]SD: 08/29/2018 Tertiary NOT GIVENUNK [place] Insurance:SELF PAY [facility] Number: Effective Repository Date:2018-08-11 07/14/2018 BILL R Primary BILL R [place] [id number] Insurance:MEDICARE MEADEDOB: [facility] PART A [facility] [id number] Number: Repository [address]Qdf: 330 [id number] [phone] () Date:2018-01-10 07/14/2018 Secondary BILL R [place] Insurance:AARPPolicy MEADEDOB: Community Number: [id number] Hospital [id number] Repository Date:7021-21-60LN [address], [place] [address]HP: 07/14/2018 Tertiary NOT GIVENUNK [place] Insurance:SELF PAY [facility] Number: Effective Repository Date:2018-07-13 06/14/2018 BILL R Primary BILL R [place] [id number] Insurance:MEDICARE MEADEDOB: [facility] PART A [facility] [id number] Number: Repository [address]Mdb: 330 [id number] [phone] () Date:2018-01-10 06/14/2018 Secondary BILL R [place] Insurance:AARPPolicy MEADEDOB: Community Number: [id number] Hospital [id number] Repository Date:7182-07-92EI [address], [place] [address]YF: 06/14/2018 Tertiary NOT GIVENUNK [place] Insurance:SELF PAY [facility] Number: Effective Repository Date:2018-06-14 05/30/2018 BILL R Primary BILL R [place] [id number] Insurance:MEDICARE MEADEDOB: [facility] PART A [facility] [id number] Number: Repository [address]Fux: 330 [id number] [phone] () Date:2018-01-10 05/30/2018 Secondary BILL R [place] Insurance:AARPPolicy MEADEDOB: Community Number: [id number] Hospital [id number] Repository Date:1192-65-28AB [address], [place] [address]IP: 05/30/2018 Tertiary NOT GIVENUNK [place] Insurance:SELF PAY [facility] Number: Effective Repository Date:2018-05-12 05/04/2018 BILL R Primary BILL R [place] [id number] Insurance:MEDICARE MEADEDOB: Community [place] PART A [facility] [id number] Number: Repository [address]Nvm: 330 [id number] [phone] () Date:2018-01-10 05/04/2018 Secondary BILL R [place] Insurance:AARPPolicy MEADEDOB: Community Number: [id number] Hospital [id number] Repository Date:8820-77-11YA [facility] [place] [address]QU: 05/04/2018 Tertiary NOT GIVENUNK [place] Insurance:SELF PAY [facility] Number: Effective Repository Date:2018-04-08 04/08/2018 BILL R Primary BILL R [place] [id number] Insurance:MEDICARE MEADEDOB: [facility] PART A [facility] [id number] Number: Repository [address]Rlg: 330 [id number] [phone] () Date:2018-01-10 04/08/2018 Secondary BILL R [place] Insurance:AARPPolicy MEADEDOB: Community Number: [id number] Hospital [id number] Repository Date:7223-18-33LB [facility] [place], [place] [address]DV: 04/08/2018 Tertiary NOT GIVENUNK [place] Insurance:SELF PAY [facility] Number: Effective Repository Date:2018-03-10 02/09/2018 BILL R Primary BILL R [place] [id number] Insurance:MEDICARE MEADEDOB: Community [place] PART A [facility] [id number] Number: Repository [address]Abe: [id number] [phone] Date:2018-01-10 () 02/09/2018 Secondary BILL R [place] Insurance:AARPPolicy MEADEDOB: Community Number: [id number] Hospital [id number] Repository Date:1009-04-14YQ [address], [place] [address]HL: 02/09/2018 Tertiary NOT GIVENUNK [place] Insurance:SELF PAY [facility] Number: Effective Repository Date:2018-02-08 01/25/2018 Bill R Primary Bill R [place] [id number] Insurance:MEDICARE MeadeDOB: Community [place] PART A [facility] [id number] Number: Repository [address]Dxp: [id number] [phone] Date:2017-09-19 () 01/25/2018 Secondary Bill R [place] Insurance:AARPPolicy MeadeDOB: Community Number: [id number] Hospital [id number] Repository Date:5956-69-31CA [address], [place] [address]GZ: 01/25/2018 Tertiary NOT GIVENUNK [place] Insurance:SELF PAY [facility] Number: Effective Repository Date:2018-01-25 01/21/2018 Bill R Primary Bill R [place] [id number] Insurance:MEDICARE MeadeDOB: Community [place] PART A [facility] [id number] Number: Repository [address]Kht: [id number] [phone] Date:2018-01-21 () 01/21/2018 Secondary Bill R [place] Insurance:AARPPolicy MeadeDOB: Community Number: [id number] Hospital [id number] Repository Date:3954-91-41TL [address], [place] [address]YM: 01/21/2018 Tertiary NOT GIVENUNK [place] Insurance:SELF PAY [facility] Number: Effective Repository Date:2018-01-21 01/20/2018 Bill R Primary Bill R [place] [id number] Insurance:MEDICARE MeadeDOB: Community [place] PART A [facility] [id number] Number: Repository [id number]: [id number] [phone] Date:2018-01-20 () 01/20/2018 Secondary Bill R [place] Insurance:AARPPolicy MeadeDOB: Community Number: [id number] Hospital [id number] Repository Date:0661-28-15ZL [address], [place] [address]SG: 01/20/2018 Tertiary NOT GIVENUNK [place] Insurance:SELF PAY [facility] Number: Effective Repository Date:2018-01-20 01/10/2018 Bill R Primary Bill R [place] [id number] Insurance:MEDICARE MeadeDOB: [facility] PART A [facility] [id number] Number: Repository [address]Hnl: [id number] [phone] Date:2017-11-12 () 01/10/2018 Secondary Bill R [place] Insurance:AARPPolicy MeadeDOB: Community Number: [id number] Hospital [id number] Repository Date:3333-94-22HB [address], [place] [address]FA: 01/10/2018 Tertiary NOT GIVENUNK [place] Insurance:SELF PAY [facility] Number: Effective Repository Date:2018-01-10 01/10/2018 Bill R Primary Bill R [place] [id number] Insurance:MEDICARE MeadeDOB: [facility] PART A [facility] [id number] Number: Repository [address]Lqc: [id number] [phone] Date:2018-01-10 () 01/10/2018 Secondary Bill R [place] Insurance:AARPPolicy MeadeDOB: Community Number: [id number] Hospital [id number] Repository Date:9414-91-43XJ [address], [place] [address]WD: 01/10/2018 Tertiary NOT GIVENUNK [place] Insurance:SELF PAY [facility] Number: Effective Repository Date:2018-01-10 12/10/2017 Bill R Primary Bill R [place] [id number] Insurance:MEDICARE MeadeDOB: [facility] PART A [facility] [id number], [place] Number: Repository [address]Crh: [id number] [phone] Date:2017-11-12 () 12/10/2017 Secondary Bill R [place] Insurance:AARPPolicy MeadeDOB: Community Number: [id number] Hospital [id number] Repository Date:1286-42-37XV [address]JX[place]X, [place] [address]NX: 12/10/2017 Tertiary NOT GIVENUNK [place] Insurance:SELF PAY [facility] Number: Effective Repository Date:2017-12-09 11/12/2017 Bill R Primary Bill R [place] [id number] Insurance:MEDICARE MeadeDOB: [facility] PART A [facility] [id number] Number: Repository [address]Pzz: [id number] [phone] Date:2017-11-12 () 11/12/2017 Secondary Bill R [place] Insurance:AARPPolicy MeadeDOB: Community Number: [id number] Hospital [id number] Repository Date:0957-00-92VB [address], [place] [address]OP: 11/12/2017 Tertiary NOT GIVENUNK [place] Insurance:SELF PAY [facility] Number: Effective Repository Date:2017-11-12 11/12/2017 Bill R Primary Bill R [place] [id number] Insurance:MEDICARE MeadeDOB: [facility] PART [facility] [id number] [place] Number: Repository [address]Nhc: [id number] [phone] Date:2017-11-12 () 11/12/2017 Secondary [place] Insurance:AARPPolicy MeadeDOB: [facility] Number: [id number] Hospital [id number] Repository Date:6270-30-26RZ [address]XWOEQJA, [place] [address]GF: 11/12/2017 Tertiary NOT GIVENHOWARD [place] Insurance:SELF PAY [facility] Number: Effective Repository Date:2017-11-12
== END 2018-10-31 12:00 | disposition home or self-care (01) ==
LOC: LAB 11:16
PROVIDERS: Family Provider Family Medicine; PCP Family Medicine; Referring Provider Internal Medicine Cardiovascular Disease; Visit Provider Internal Medicine Cardiovascular Disease
DX: I48.91 Unspecified atrial fibrillation (principal); Z95.2 Presence of prosthetic heart valve; Z79.01 Long term (current) use of anticoagulants
CPT/HCPCS: 36415; 85610

== ENCOUNTER 2018-11-28 09:00 | Outpatient (RCR) | payer MEDICARE, OTHER, SELFPAY ==
[2018-11-28 09:48] LABS: International Normalized Ratio 2.6; Prothrombin Time (Protime)PT. 27.8 SECONDS (11.7-14.9)
== END 2018-12-08 14:15 | disposition home or self-care (01) ==
LOC: LAB 09:00
PROVIDERS: Family Provider Family Medicine; PCP Family Medicine; Referring Provider Internal Medicine Cardiovascular Disease; Visit Provider Internal Medicine Cardiovascular Disease
DX: I48.91 Unspecified atrial fibrillation (principal); Z95.2 Presence of prosthetic heart valve; Z79.01 Long term (current) use of anticoagulants
CPT/HCPCS: 36415; 85610

== ENCOUNTER 2018-12-26 08:48 | Outpatient (RCR) | payer MEDICARE, OTHER, SELFPAY ==
[2018-12-26 09:52] LABS: Prothrombin Time (Protime)PT. 31.4 SECONDS (11.7-14.9)
== END 2018-12-26 09:00 | disposition home or self-care (01) ==
LOC: LAB 08:48
PROVIDERS: Family Provider Family Medicine; PCP Family Medicine; Referring Provider Internal Medicine Cardiovascular Disease; Visit Provider Internal Medicine Cardiovascular Disease
DX: I48.91 Unspecified atrial fibrillation (principal); Z95.2 Presence of prosthetic heart valve; Z79.01 Long term (current) use of anticoagulants
CPT/HCPCS: 36415; 85610

== ENCOUNTER 2019-01-26 08:49 | Outpatient (RCR) | payer MEDICARE, OTHER, SELFPAY ==
[2019-01-26 09:25] LABS: International Normalized Ratio 2.7; Prothrombin Time (Protime)PT. 28.8 SECONDS (11.7-14.9)
[2019-01-26 10:00] LABS: AST(SGOT) 31 U/L (15-37); Alanine Aminotransfer ALT/SGPT 57 U/L (16-61); Albumin, Serum 3.7 g/dL (3.2-5.0); Alkaline Phosphatase 94 U/L (45-117); Bilirubin, Direct 0.18 mg/dL (0.00-0.30); Cholesterol 110 mg/dL (200); Globulin 3.2 g/dL (2.2-4.2); High Density Lipoprotein 45 mg/dL; Protein, Total 6.9 g/dL (6.4-8.2); Triglycerides 160 mg/dL; Very Low Density Lipoprotein 32 mg/dL (5-40)
== END 2019-02-07 16:00 | disposition home or self-care (01) ==
LOC: LAB 08:49
PROVIDERS: Family Provider Family Medicine; PCP Family Medicine; Referring Provider Internal Medicine Cardiovascular Disease; Visit Provider Internal Medicine Cardiovascular Disease
DX: I48.91 Unspecified atrial fibrillation (principal); Z95.2 Presence of prosthetic heart valve; Z79.01 Long term (current) use of anticoagulants; E78.5 Hyperlipidemia, unspecified
CPT/HCPCS: 36415; 80061; 80076; 85610

== ENCOUNTER → 2019-02-17 09:27 | Outpatient (CLI) | payer MEDICARE, OTHER, SELFPAY ==
[2019-01-26 08:57] VITALS: BMI 32.3
--- NOTE | 2019-02-17 09:31 | ECHOD_ITS ---
Reason For Study: valve replacement - eval Procedure This was a 2D Doppler, Color Flow transthoracic echocardiogram. Exam performed in department. Left Ventricle Normal LV size. Left ventricular systolic function is normal. The estimated ejection fraction is 55 %. No regional wall motion abnormalities noted. Right Ventricle Normal RV size. Normal systolic function. Atria The left atrium is mildly enlarged. Normal right atrium. Mitral Valve There is moderate mitral annular calcification. Mild (1+) eccentric mitral valve insufficiency. Tricuspid Valve Normal tricuspid valve. Mild (1+) tricuspid valve insufficiency. Pulmonary artery systolic pressure is 40 mmHg. Aortic Valve Peak aortic valve gradient 27 mmHg. Mean aortic valve gradient 16 mmHg. Calculated aortic valve area (continuity equation) is 1.4 cm2. Stable appearing mechanical aortic valve apparatus. Great Vessels Normal aortic root. The pulmonary artery is normal size. Normal inferior vena cava. Pericardium/Pleural No pericardial effusion. MMode/2D Measurements & Calculations LVIDd: 4.8 cm IVSd: 0.86 cm LVOT diam: 2.1 cm LVIDs: 3.6 cm LVPWd: 0.86 cm LVOT area: 3.4 cm2 RVDd: 3.4 cm FS: 25.1 % LAV(MOD-bp): 85.3 ml LA A4 area: 23.3 cm2 LA dimension(2D): 4.6 cm LAV(MOD-bp) Indexed: 45.1 ml/m2 LAV(MOD-sp2): 96.3 ml LAV(MOD-sp4): 73.6 ml RA A4 area: 17.6 cm2 Time Measurements MV dec time: 0.24 sec Doppler Measurements & Calculations MV E max bryant: 116.3 cm/sec Lat Peak E' Bryant: 9.1 cm/sec Med Peak E' Bryant: 6.5 cm/sec MV A max bryant: 115.9 cm/sec E/E' lat: 12.8 E/E' med: 17.8 MV E/A: 1.0 Ao V2 max: 262.3 cm/sec LV V1 max: 104.3 cm/sec SV(LVOT): 89.9 ml Ao max P.5 mmHg LV V1 max P.4 mmHg Ao V2 mean: 190.2 cm/sec LV V1 mean P.5 mmHg Ao mean P.8 mmHg LV V1 mean: 76.4 cm/sec Ao V2 VTI: 62.9 cm LV V1 VTI: 26.4 cm TEA(I,D): 1.4 cm2 TEA(V,D): 1.4 cm2 PA V2 max: 146.2 cm/sec TR max bryant: 298.4 cm/sec TR max P.6 mmHg Interpretation Summary Normal LV size. Left ventricular systolic function is normal. The estimated ejection fraction is 55 %. Mild (1+) tricuspid valve insufficiency. Pulmonary artery systolic pressure is 40 mmHg. Mean aortic valve gradient 16 mmHg. Calculated aortic valve area (continuity equation) is 1.4 cm2. There is moderate mitral annular calcification. Mild (1+) eccentric mitral valve insufficiency. Ordering Physician: Jarek Solis Referring Physician: Oneal Herrera Performed By: Carin Johnson, ANKUR, RVT
== END ==
PROVIDERS: Family Provider Family Medicine; PCP Family Medicine; Referring Provider Internal Medicine Cardiovascular Disease; Visit Provider Internal Medicine Cardiovascular Disease
DX: I35.0 Nonrheumatic aortic (valve) stenosis (principal)
CPT/HCPCS: 93306

== ENCOUNTER 2019-03-02 08:08 | Outpatient (RCR) | payer MEDICARE, OTHER, SELFPAY ==
[2019-01-26 08:57] VITALS: BMI 32.3
[2019-02-23 15:25] LABS: International Normalized Ratio 1.5; Prothrombin Time (Protime)PT. 17.8 SECONDS (11.7-14.9)
[2019-03-02 10:21] LABS: International Normalized Ratio 2.5; Prothrombin Time (Protime)PT. 27.3 SECONDS (11.7-14.9)
== END 2019-03-02 09:00 | disposition home or self-care (01) ==
LOC: LAB 08:08
PROVIDERS: Family Provider Family Medicine; PCP Family Medicine; Referring Provider Internal Medicine Cardiovascular Disease; Visit Provider Internal Medicine Cardiovascular Disease
DX: I48.91 Unspecified atrial fibrillation (principal); Z95.2 Presence of prosthetic heart valve; Z79.01 Long term (current) use of anticoagulants
CPT/HCPCS: 36415; 85610

== ENCOUNTER 2019-04-05 08:38 | Outpatient (RCR) | payer MEDICARE, OTHER, SELFPAY ==
[2019-01-26 08:57] VITALS: BMI 32.3
[2019-03-16 08:35] LABS: International Normalized Ratio 3.3; Prothrombin Time (Protime)PT. 33.7 SECONDS (11.7-14.9)
[2019-04-05 10:07] LABS: Prothrombin Time (Protime)PT. 31.5 SECONDS (11.7-14.9)
== END 2019-04-09 12:00 | disposition home or self-care (01) ==
LOC: LAB 08:38
PROVIDERS: Family Provider Family Medicine; PCP Family Medicine; Referring Provider Internal Medicine Cardiovascular Disease; Visit Provider Internal Medicine Cardiovascular Disease
DX: I48.91 Unspecified atrial fibrillation (principal); Z95.2 Presence of prosthetic heart valve; Z79.01 Long term (current) use of anticoagulants
CPT/HCPCS: 36415; 85610

== ENCOUNTER 2019-05-05 10:30 | Outpatient (RCR) | payer MEDICARE, OTHER, SELFPAY ==
[2019-01-26 08:57] VITALS: BMI 32.3
[2019-05-05 11:44] LABS: International Normalized Ratio 3.8; Prothrombin Time (Protime)PT. 37.4 SECONDS (11.7-14.9)
== END 2019-05-05 11:00 | disposition home or self-care (01) ==
LOC: LAB 10:30
PROVIDERS: Family Provider Family Medicine; PCP Family Medicine; Referring Provider Internal Medicine Cardiovascular Disease; Visit Provider Internal Medicine Cardiovascular Disease
DX: I48.91 Unspecified atrial fibrillation (principal); Z95.2 Presence of prosthetic heart valve; Z79.01 Long term (current) use of anticoagulants
CPT/HCPCS: 36415; 85610

== ENCOUNTER 2019-05-31 08:39 | Outpatient (RCR) | payer MEDICARE, OTHER, SELFPAY ==
[2019-01-26 08:57] VITALS: BMI 32.3
[2019-05-17 10:19] LABS: International Normalized Ratio 2.4
[2019-05-31 10:32] LABS: International Normalized Ratio 3.1; Prothrombin Time (Protime)PT. 31.8 SECONDS (11.7-14.9)
== END 2019-05-31 10:00 | disposition home or self-care (01) ==
LOC: LAB 08:39
PROVIDERS: Family Provider Family Medicine; PCP Family Medicine; Referring Provider Internal Medicine Cardiovascular Disease; Visit Provider Internal Medicine Cardiovascular Disease
DX: I48.91 Unspecified atrial fibrillation (principal); Z95.2 Presence of prosthetic heart valve; Z79.01 Long term (current) use of anticoagulants
CPT/HCPCS: 36415; 85610

== ENCOUNTER 2019-06-28 08:33 | Outpatient (RCR) | payer MEDICARE, OTHER, SELFPAY ==
[2019-01-26 08:57] VITALS: BMI 32.3
[2019-06-21 11:11] LABS: Prothrombin Time (Protime)PT. 39.5 SECONDS (11.7-14.9)
[2019-06-28 09:48] LABS: International Normalized Ratio 2.8; Prothrombin Time (Protime)PT. 29.6 SECONDS (11.7-14.9)
== END 2019-06-28 13:00 | disposition home or self-care (01) ==
LOC: LAB 08:33
PROVIDERS: Family Provider Family Medicine; PCP Family Medicine; Referring Provider Internal Medicine Cardiovascular Disease; Visit Provider Internal Medicine Cardiovascular Disease
DX: I48.0 Paroxysmal atrial fibrillation (principal); Z79.01 Long term (current) use of anticoagulants
CPT/HCPCS: 36415; 85610

== ENCOUNTER 2019-08-07 07:48 | Outpatient (RCR) | payer MEDICARE, OTHER, SELFPAY ==
[2019-01-26 08:57] VITALS: BMI 32.3
[2019-07-12 09:32] LABS: Prothrombin Time (Protime)PT. 41.9 SECONDS (11.7-14.9)
[2019-07-12 09:37] LABS: International Normalized Ratio 4.3
[2019-07-17 09:36] LABS: International Normalized Ratio 2.4
[2019-07-17 09:54] LABS: AST(SGOT) 28 U/L (15-37); Alanine Aminotransfer ALT/SGPT 25 U/L (16-61); Albumin, Serum 3.8 g/dL (3.2-5.0); Alkaline Phosphatase 115 U/L (45-117); Bilirubin, Direct 0.22 mg/dL (0.00-0.30); Cholesterol 114 mg/dL (200); Globulin 3.4 g/dL (2.2-4.2); High Density Lipoprotein 45 mg/dL; Protein, Total 7.2 g/dL (6.4-8.2); Triglycerides 82 mg/dL; Very Low Density Lipoprotein 16 mg/dL (5-40)
[2019-07-24 09:28] LABS: International Normalized Ratio 2.3
[2019-08-07 09:24] LABS: International Normalized Ratio 2.6; Prothrombin Time (Protime)PT. 28.3 SECONDS (11.7-14.9)
== END 2019-08-07 18:00 | disposition home or self-care (01) ==
LOC: LAB 07:48
PROVIDERS: Family Provider Family Medicine; PCP Family Medicine; Referring Provider Internal Medicine Cardiovascular Disease; Visit Provider Internal Medicine Cardiovascular Disease
DX: I48.0 Paroxysmal atrial fibrillation (principal); Z79.01 Long term (current) use of anticoagulants; E78.5 Hyperlipidemia, unspecified
CPT/HCPCS: 36415; 80061; 80076; 85610

== ENCOUNTER 2019-09-04 08:20 | Outpatient (RCR) | payer MEDICARE, OTHER, SELFPAY ==
[2019-01-26 08:57] VITALS: BMI 32.3
[2019-08-21 10:22] LABS: International Normalized Ratio 2.5
[2019-09-04 09:13] LABS: International Normalized Ratio 2.3; Prothrombin Time (Protime)PT. 24.9 SECONDS (11.7-14.9)
== END 2019-09-04 18:00 | disposition home or self-care (01) ==
LOC: LAB 08:20
PROVIDERS: Family Provider Family Medicine; PCP Family Medicine; Referring Provider Internal Medicine Cardiovascular Disease; Visit Provider Internal Medicine Cardiovascular Disease
DX: I48.0 Paroxysmal atrial fibrillation (principal); Z79.01 Long term (current) use of anticoagulants
CPT/HCPCS: 36415; 85610

== ENCOUNTER 2019-10-09 08:38 | Outpatient (RCR) | payer MEDICARE, OTHER, SELFPAY ==
[2019-01-26 08:57] VITALS: BMI 32.3
[2019-09-18 08:46] LABS: Absolute Lymphocyte Count 1.41 X10^3/uL (0.83-4.51); Absolute Neutrophil Count 6.4 X10^3/uL (2.0-7.7); Basophil# 0.06 X10^3/uL; Basophil% 0.6 % (0-1); Eosinophils% 11.3 % (0-5); Hematocrit 41.1 % (40-54); Hemoglobin 13.7 g/dL (13.0-16.5); Lymphocyte # 1.41 X10^3/ul (4.0); Lymphocyte % 14.5 % (19-41); Mean Corp Hgb Conc 33.3 g/dL (32-36); Mean Corpuscular Hgb 30.6 pg (27.0-32.0); Mean Corpuscular Volume 91.9 fL (80-94); Mean Platelet Vol. 12.1 fl (6.2-12.0); Monocyte# 0.68 X10^3/uL; NRBC Flagged by Analyzer 0 % (0-5); Neutrophil # 6.42 X10^3/uL (2.7-7.7); Neutrophil % 66.3 % (47-70); Platelet Count 163 K/mm3 (150-450); RBC Distribution Width CV 12.4 % (11.6-14.6); RBC Distribution Width SD 41.4 fl (35.1-43.9); Red Blood Count 4.47 M/mm3 (4.6-6.2); White Blood Count 9.7 K/mm3 (4.4-11.0)
[2019-09-18 09:03] LABS: ALB/GLOB Ratio 1.2 RATIO (0.9-2.4); AST(SGOT) 24 U/L (15-37); Alanine Aminotransfer ALT/SGPT 22 U/L (16-61); Albumin, Serum 3.7 g/dL (3.2-5.0); Alkaline Phosphatase 94 U/L (45-117); Anion Gap 2 (5-15); BUN 20 mg/dL (7-18); BUN/Creat Ratio 20.9 RATIO (10-20); Calcium,Total 8.6 mg/dL (8.5-10.1); Chloride 110 mmol/L (98-107); Creatinine, Serum 0.96 mg/dL (0.70-1.30); EST Glomerular Filtration Rate 81 mL/min (>60); Est Glom Filt Rate - Afr Amer 98 mL/min (>60); Glucose 100 mg/dL (74-106); Potassium 4.5 mmol/L (3.5-5.1); Protein, Total 6.7 g/dL (6.4-8.2); Sodium Level 141 mmol/L (136-145)
[2019-09-18 09:08] LABS: Prothrombin Time (Protime)PT. 31.6 SECONDS (11.7-14.9)
[2019-10-09 09:26] LABS: International Normalized Ratio 2.6; Prothrombin Time (Protime)PT. 28.3 SECONDS (11.7-14.9)
[2019-10-09 09:41] LABS: Anion Gap 4 (5-15); BUN 16 mg/dL (7-18); BUN/Creat Ratio 16.8 RATIO (10-20); Chloride 110 mmol/L (98-107); Creatinine, Serum 0.95 mg/dL (0.70-1.30); EST Glomerular Filtration Rate 81 mL/min (>60); Est Glom Filt Rate - Afr Amer 98 mL/min (>60); Glucose 112 mg/dL (74-106); Potassium 4.8 mmol/L (3.5-5.1); Sodium Level 144 mmol/L (136-145)
== END 2019-10-09 18:00 | disposition home or self-care (01) ==
LOC: LAB 08:38
PROVIDERS: Family Medicine; Family Provider Family Medicine; PCP Family Medicine; Referring Provider Internal Medicine Cardiovascular Disease; Visit Provider Internal Medicine Cardiovascular Disease
DX: I48.0 Paroxysmal atrial fibrillation (principal); Z79.01 Long term (current) use of anticoagulants
CPT/HCPCS: 36415; 80048; 80053; 85025; 85610

== ENCOUNTER 2019-10-30 08:38 | Outpatient (RCR) | payer MEDICARE, OTHER, SELFPAY ==
[2019-01-26 08:57] VITALS: BMI 32.3
[2019-10-30 09:27] LABS: International Normalized Ratio 2.8; Prothrombin Time (Protime)PT. 29.6 SECONDS (11.7-14.9)
== END 2019-10-30 18:00 | disposition home or self-care (01) ==
LOC: LAB 08:38
PROVIDERS: Family Provider Family Medicine; PCP Family Medicine; Referring Provider Internal Medicine Cardiovascular Disease; Visit Provider Internal Medicine Cardiovascular Disease
DX: I48.0 Paroxysmal atrial fibrillation (principal); Z79.01 Long term (current) use of anticoagulants
CPT/HCPCS: 36415; 85610

== ENCOUNTER 2019-11-27 09:53 | Outpatient (RCR) | payer MEDICARE, OTHER, SELFPAY ==
[2019-01-26 08:57] VITALS: BMI 32.3
[2019-11-27 10:31] LABS: International Normalized Ratio 2.8; Prothrombin Time (Protime)PT. 29.7 SECONDS (11.7-14.9)
== END 2019-11-27 18:00 | disposition home or self-care (01) ==
LOC: LAB 09:53
PROVIDERS: Family Provider Family Medicine; PCP Family Medicine; Referring Provider Internal Medicine Cardiovascular Disease; Visit Provider Internal Medicine Cardiovascular Disease
DX: I48.0 Paroxysmal atrial fibrillation (principal); Z79.01 Long term (current) use of anticoagulants
CPT/HCPCS: 36415; 85610

== ENCOUNTER 2019-12-25 10:29 | Outpatient (RCR) | payer MEDICARE, OTHER, SELFPAY ==
[2019-01-26 08:57] VITALS: BMI 32.3
[2019-12-25 11:44] LABS: International Normalized Ratio 2.5; Prothrombin Time (Protime)PT. 27.3 SECONDS (11.7-14.9)
== END 2019-12-25 18:00 | disposition home or self-care (01) ==
LOC: LAB 10:29
PROVIDERS: Family Provider Family Medicine; PCP Family Medicine; Referring Provider Internal Medicine Cardiovascular Disease; Visit Provider Internal Medicine Cardiovascular Disease
DX: I48.0 Paroxysmal atrial fibrillation (principal); Z79.01 Long term (current) use of anticoagulants
CPT/HCPCS: 36415; 85610

== ENCOUNTER → 2020-01-25 10:04 | Outpatient (CLI) | payer MEDICARE, OTHER, SELFPAY ==
[2019-01-26 08:57] VITALS: BMI 32.3
[2020-01-25 11:20] LABS: Prothrombin Time (Protime)PT. 35.4 SECONDS (11.7-14.9)
[2020-01-25 12:00] LABS: International Normalized Ratio 3.6
== END ==
PROVIDERS: Visit Provider Internal Medicine Cardiovascular Disease
DX: I27.21 Secondary pulmonary arterial hypertension (principal); I10 Essential (primary) hypertension; I35.0 Nonrheumatic aortic (valve) stenosis; I48.0 Paroxysmal atrial fibrillation; Z95.2 Presence of prosthetic heart valve; Z79.01 Long term (current) use of anticoagulants
CPT/HCPCS: 36415; 85610

== ENCOUNTER → 2020-02-01 08:32 | Outpatient (CLI) | payer MEDICARE, OTHER, SELFPAY ==
[2020-01-30 13:28] VITALS: BMI 31.1
[2020-02-01 09:50] LABS: International Normalized Ratio 2.6; Prothrombin Time (Protime)PT. 27.7 SECONDS (11.7-14.9)
== END ==
PROVIDERS: Visit Provider Internal Medicine Cardiovascular Disease
DX: I27.21 Secondary pulmonary arterial hypertension (principal); I10 Essential (primary) hypertension; I35.0 Nonrheumatic aortic (valve) stenosis; I48.0 Paroxysmal atrial fibrillation; Z95.2 Presence of prosthetic heart valve; Z79.01 Long term (current) use of anticoagulants
CPT/HCPCS: 36415; 85610

== ENCOUNTER → 2020-02-15 05:32 | Outpatient (CLI) | payer MEDICARE, OTHER, SELFPAY ==
[2020-01-30 13:28] VITALS: BMI 31.1
[2020-02-15 09:31] LABS: Prothrombin Time (Protime)PT. 34.5 SECONDS (11.7-14.9)
[2020-02-15 10:43] LABS: International Normalized Ratio 3.5
== END ==
PROVIDERS: Visit Provider Internal Medicine Cardiovascular Disease
DX: I48.0 Paroxysmal atrial fibrillation (principal); I27.20 Pulmonary hypertension, unspecified; I10 Essential (primary) hypertension; I35.0 Nonrheumatic aortic (valve) stenosis; Z95.2 Presence of prosthetic heart valve; Z79.01 Long term (current) use of anticoagulants
CPT/HCPCS: 36415; 85610

== ENCOUNTER → 2020-02-29 08:34 | Outpatient (CLI) | payer MEDICARE, OTHER, SELFPAY ==
[2020-01-30 13:28] VITALS: BMI 31.1
[2020-02-29 10:51] LABS: Prothrombin Time (Protime)PT. 40.9 SECONDS (11.7-14.9)
[2020-02-29 10:53] LABS: International Normalized Ratio 4.3
== END ==
PROVIDERS: Visit Provider Internal Medicine Cardiovascular Disease
DX: Z79.01 Long term (current) use of anticoagulants (principal); I27.21 Secondary pulmonary arterial hypertension; I10 Essential (primary) hypertension; I35.0 Nonrheumatic aortic (valve) stenosis; I48.0 Paroxysmal atrial fibrillation; Z95.2 Presence of prosthetic heart valve
CPT/HCPCS: 36415; 85610

== ENCOUNTER 2020-03-03 18:35 | Inpatient (IN) | payer MEDICARE, OTHER, SELFPAY ==
[2020-01-30 13:28] VITALS: BMI 31.1
[2020-03-03 18:37] VITALS: BP 119/60; PULSE 83; RESP 18; TEMP 36.8; O2SAT 95; BMI 33.0
--- NOTE | 2020-03-03 18:40 | CT_ITS ---
STUDY: CT BRAIN WITHOUT CONTRAST REASON FOR EXAM: Male, 79 years old. ALTERED MENTAL STATUS RADIATION DOSAGE (If Supplied By Facility): CTDIvol = ( 44.99 ) mGy, DLP = ( 762.36 ) mGycm TECHNIQUE: Transaxial CT imaging of the brain was performed without administration of intravenous contrast material. Individualized dose optimization techniques were used for this CT. COMPARISON: No relevant priors. FINDINGS: Atrophic, calcified left globe. Otherwise unremarkable soft tissue structures. Normal calvarium. There is moderate cerebral atrophy with widening of the extra-axial spaces and ventricular dilatation. There are areas of decreased attenuation within the white matter tracts of the supratentorial brain, consistent with microvascular disease changes. Normal basal ganglia and thalami. Normal brainstem. Normal cerebellum. There is no intracranial hemorrhage. There are no findings of an acute ischemic infarction. Chronic left cerebellar infarct. Atherosclerotic calcification of the cavernous carotid arteries. Normal visualized paranasal sinuses. CT/Brain/Head without Contrast IMPRESSION: 1. No acute findings. 2. Chronic left cerebellar infarct. 3. Microvascular ischemia. Atrophy. Electronically Signed: Makenzie Hollins MD at 19:56 EDT Tel , Service support ,
--- NOTE | 2020-03-03 18:41 | EKG12_ITS ---
Test Reason : MENTAL HEALTH Blood Pressure : / mmHG Vent. Rate : 080 BPM Atrial Rate : 080 BPM P-R Int : 144 ms QRS Dur : 078 ms QT Int : 374 ms P-R-T Axes : 059 -10 022 degrees QTc Int : 431 ms Poor data quality, interpretation may be adversely affected Normal sinus rhythm Normal ECG Confirmed by AMANDA EVANS, MEDINA ([id number]), electronic news gathering editor LOU VARGAS ([id number]) on 03/05/2020 3:20:24 PM Referred By: JD Confirmed By:MEDINA PATEL MD
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
[2020-03-03 18:56] LABS: Bacteria 0 SEEN /hpf (None Seen); Mucous, Urine 0 SEEN /hpf (<or=2+)
[2020-03-03 19:00] LABS: Color, Urine Yellow (Yellow); Glucose, Dipstick Normal (Normal); Ketone-Dipstick 5 mg/dl (Negative); Leukocyte Esterase-Dipstick Negative /ul (Negative); Nitrite-Dipstick Negative (Negative); Occult Blood-Urine 10 /ul (Negative); Protein-Dipstick 15 mg/dl (Negative); Urine Bilirubin Dipstick Negative (Negative); Urine Clarity Clear (Clear); Urine Urobilinogen 4 mg/dl (Normal)
[2020-03-03 19:07] LABS: Absolute Neutrophil Count 7.6 X10^3/uL (2.0-7.7); Basophil# 0.06 X10^3/uL; Basophil% 0.6 % (0-1); Eosinophil# 0.53 X10^3/uL; Eosinophils% 5.3 % (0-5); Hematocrit 37.9 % (40-54); Hemoglobin 12.5 g/dL (13.0-16.5); Mean Corpuscular Hgb 30.6 pg (27.0-32.0); Mean Corpuscular Volume 92.9 fL (80-94); Mean Platelet Vol. 12.1 fl (6.2-12.0); Monocyte# 0.68 X10^3/uL; Monocyte% 6.8 % (0-10); NRBC Flagged by Analyzer 0 % (0-5); Neutrophil # 7.57 X10^3/uL (2.7-7.7); Platelet Count 159 K/mm3 (150-450); RBC Distribution Width CV 12.5 % (11.6-14.6); RBC Distribution Width SD 42.3 fl (35.1-43.9); Red Blood Count 4.08 M/mm3 (4.6-6.2)
--- NOTE | 2020-03-03 19:10 | RAD_ITS ---
STUDY: X-RAY CHEST REASON FOR EXAM: Male, 79 years old. ALTERED MENTAL STATUS TECHNIQUE: Single AP portable view of the chest. COMPARISON: 10/04/2012. FINDINGS: Stable bilateral granulomas. Lungs are otherwise clear. There is no demonstrated pleural abnormality. Normal size heart. Sternotomy wires are present. Normal mediastinum and ce. Normal visualized pulmonary arteries. Normal visualized aortic arch and descending thoracic aorta. Reverse left shoulder arthroplasty. Soft tissues and bony structures are otherwise unremarkable. RAD/Chest 1 View (Portable) IMPRESSION: No acute findings. Electronically Signed: Makenzie Hollins MD at 20:10 EDT Tel , Service support ,
[2020-03-03 19:27] LABS: Hyaline Cast 10-25 SEEN /lpf (0-5)
[2020-03-03 19:29] LABS: Red Blood Cells-Urine 0-5 SEEN /hpf (0-5); Squamous Epithelial Cells - UA 0-5 SEEN /hpf (0-5); White Blood Cells 0-5 SEEN /hpf (0-5)
[2020-03-03 19:30] LABS: ALB/GLOB Ratio 1.2 RATIO (0.9-2.4); AST(SGOT) 27 U/L (15-37); Alanine Aminotransfer ALT/SGPT 20 U/L (16-61); Albumin, Serum 3.8 g/dL (3.2-5.0); Alkaline Phosphatase 94 U/L (45-117); Anion Gap 4 (5-15); BUN 23 mg/dL (7-18); BUN/Creat Ratio 15.6 RATIO (10-20); Calcium,Total 8.9 mg/dL (8.5-10.1); Chloride 112 mmol/L (98-107); Creatinine, Serum 1.47 mg/dL (0.70-1.30); EST Glomerular Filtration Rate 49 mL/min (>60); Est Glom Filt Rate - Afr Amer 60 mL/min (>60); Estimated Creatinine Clearance 33.33 ml/min; Globulin 3.1 g/dL (2.2-4.2); Glucose 119 mg/dL (74-106); Potassium 4.1 mmol/L (3.5-5.1); Protein, Total 6.9 g/dL (6.4-8.2); Sodium Level 145 mmol/L (136-145)
[2020-03-03 19:31] LABS: Alcohol, Blood (Medical)-Serum < 3.0 mg/dL
[2020-03-03 19:41] LABS: Amphetamine Urine VISTA NEGATIVE (<1000 ng/mL); Barbiturate Urine VISTA NEGATIVE (< 200 ng/mL); Benzodiazepine Urine VISTA NEGATIVE (< 200 ng/mL); Cocaine Urine VISTA NEGATIVE (< 300 ng/mL); Ecstacy Urine VISTA NEGATIVE (< 500 ng/mL); Methadone Urine VISTA NEGATIVE (< 300 ng/mL); PCP Urine VISTA NEGATIVE (< 25 ng/mL); THC Urine VISTA NEGATIVE (< 50 ng/mL); Vista UDS pH Range 5
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
[2020-03-03 21:19] LABS: International Normalized Ratio 2.7; Prothrombin Time (Protime)PT. 28.3 SECONDS (11.7-14.9)
[2020-03-03] MEDS: 0.9% Normal Saline 1,000 ML 150 ML IV (21:51)
[2020-03-03] MEDS: Ziprasidone HCl 20 MG Capsule PO (21:52)
[2020-03-03 21:53] VITALS: BP 172/73; PULSE 89; RESP 18; TEMP 36.6; O2SAT 99
[2020-03-03 22:15] VITALS: BP 178/85; PULSE 95; RESP 18; TEMP 36.9; O2SAT 99
[2020-03-03 22:28] VITALS: BMI 32.1
[2020-03-03 22:33] VITALS: BMI 32.1
[2020-03-03 23:10] VITALS: PULSE 95
[2020-03-03] MEDS: Metoprolol Tartrate 50 MG Tablet PO (23:10)
[2020-03-03] MEDS: 0.9% Normal Saline 1,000 ML 100 ML IV (23:11)
[2020-03-03] MEDS: Carbidopa/Levodopa 25/100 Tablet PO (23:11)
[2020-03-03] MEDS: Latanoprost 0.005% 1 Bottle 1 DRP OPHTHALMIC (23:12)
[2020-03-03] MEDS: Memantine Hydrochloride 10 MG Tablet PO (23:12)
[2020-03-03] MEDS: Atorvastatin Calcium 80 MG Tablet PO (23:13)
[2020-03-04] VITALS (12 sets, daily range): BP systolic 135–165; BP diastolic 69–95; PULSE 77–101; RESP 18–20; TEMP 36.4–37.7; O2SAT 92–100
[2020-03-04] MEDS: hydrALAZINE 20 MG/ML Vial 5 MG IV (02:17)
[2020-03-04] MEDS: Carbidopa/Levodopa 25/100 Tablet PO ×2 (06:00→16:45)
[2020-03-04 06:40] LABS: International Normalized Ratio 2.4; Prothrombin Time (Protime)PT. 25.5 SECONDS (11.7-14.9)
[2020-03-04 07:01] LABS: Anion Gap 6 (5-15); BUN 19 mg/dL (7-18); BUN/Creat Ratio 19.6 RATIO (10-20); Calcium,Total 9.1 mg/dL (8.5-10.1); Chloride 110 mmol/L (98-107); Creatinine, Serum 0.97 mg/dL (0.70-1.30); EST Glomerular Filtration Rate 80 mL/min (>60); Est Glom Filt Rate - Afr Amer 96 mL/min (>60); Estimated Creatinine Clearance 50.51 ml/min; Glucose 110 mg/dL (74-106); Potassium 3.9 mmol/L (3.5-5.1); Sodium Level 144 mmol/L (136-145); Thyroid Stim Hormone (TSH) 1.96 uIU/mL (0.358-3.74)
[2020-03-04] MEDS: Multivitamins,Therapeutic Tablet 1 TABLET PO (07:39)
[2020-03-04] MEDS: Pantoprazole Sodium 40 MG Tablet PO (07:39)
[2020-03-04] MEDS: Aspirin E.C. 81 MG Tablet PO (07:39)
[2020-03-04] MEDS: Metoprolol Tartrate 50 MG Tablet PO ×2 (07:39→21:09)
[2020-03-04] MEDS: Ascorbic Acid 500 MG Tablet PO (07:39)
[2020-03-04] MEDS: Memantine Hydrochloride 10 MG Tablet PO ×2 (07:40→21:16)
[2020-03-04 09:10] LABS: Vitamin B12 642 pg/mL (211-911)
[2020-03-04] MEDS: 0.9% Normal Saline 1,000 ML 100 ML IV ×2 (09:29→18:52)
--- NOTE | 2020-03-04 09:31 | NURSING ---
Spoke with Paola and updated her.
[2020-03-04] MEDS: Haloperidol Lactate 5 MG/ML Vial 2 MG IM ×2 (10:18→16:56)
[2020-03-04 11:50] LABS: Bedside Glucose 110 mg/dL (70-110)
--- NOTE | 2020-03-04 12:28 | PN_ITS ---
<Mara Beal - Last Filed: 03/04/20 12:41> Patient Problems: Active and Suspected Problems (Last Reviewed 03/03/20 @ 22:[address] Roscoe Deutsch MD) Acute encephalopathy (Acute) OLGA (acute kidney injury) (Acute) Dehydration (Acute) Agitation (Acute) Subjective: Patient seen and examined. Became very agitated and combative this morning, repeatedly attempting to get out of bed and punching and kicking at staff. Patient unable to be reoriented. Yahaira kahn called and patient was assisted back into bed safely. He received Haldol 2 mg IM x1 and was placed into four- point soft restraints secondary to continuously attempting to hit and kick staff. Following a later reassessment, patient is more calm. Sitter at bedside. Family updated. - Physical Exam Vitals/I&O's: Vital Signs Temp Pulse Resp BP Pulse Ox 98.7 F 86 20 H 142/69 H 96 03/04/20 11:40 03/04/20 11:40 03/04/20 11:40 03/04/20 11:40 03/04/20 11:40 Oxygen Delivery Method Room Air Weight: 181 lb Body Mass Index (BMI) 32.1 Intake and Output for Last 24 Hours 03/02/20 03/03/20 03/04/20 23:59 23:59 23:59 Intake Total 120 / 120 1240 / 1240 Output Total 150 / 150 Balance -30 / -30 1240 / 1240 General: Alert, Confused, - - Agitated, combative HEENT: Atraumatic, PERRLA, EOMI, Normocephalic Oral: Dry Mucosa Neck: Supple, No JVD, Negative Carotid Bruits Lungs: Clear to auscultation, Diminished Cardiovascular: Regular rate, Regular Rhythm, Normal S1, Normal S2, No murmurs Abdomen: Bowel Sounds Present, Soft, Non Tender, Non-Distended Extremities: No clubbing, No cyanosis, No edema, Capillary Refill Less than 3 Seconds Skin: No rashes, No breakdown Musculoskeletal: No Tenderness to Palpation of Joints or Extremities Neurological: Cranial nerves II-XII grossly intact Psych/Mental Status: Agitated, Impulsive, Irrational Behavior, Restless Laboratory Results 03/03/20 18:50: Urine Opiates Screen NEGATIVE, Urine Methadone Screen NEGATIVE, Ur Barbiturates Screen NEGATIVE, Ur Phencyclidine Scrn NEGATIVE, Ur Amphetamines Screen NEGATIVE, U Methamphetamin-MDMA NEGATIVE, U Benzodiazepines Scrn NEGATIVE, Urine Cocaine Screen NEGATIVE, U Cannabinoids Screen NEGATIVE, Ur Drug Screen Comment 03/03/20 18:50: Urine Color Yellow, Urine Clarity Clear, Urine pH 5.0, Ur Specific [place] 1.020, Urine Protein 15 H, Urine Glucose (UA) Normal, Urine Ketones 5 H, Urine Occult Blood 10 H, Urine Nitrite Negative, Urine Bilirubin Negative, Urine Urobilinogen 4 H, Ur Leukocyte Esterase Negative, Urine RBC 0-5 SEEN, Urine WBC 0-5 SEEN, Ur Squamous Epith Cells 0-5 SEEN, Urine Bacteria 0 SEEN, Hyaline Casts 10-25 SEEN, Urine Mucus 0 SEEN 03/03/20 19:00: WBC 10.0, RBC 4.08 L, Hgb 12.5 L, Hct 37.9 L, MCV 92.9, MCH 30.6, MCHC 33.0, RDW Std Deviation 42.3, RDW Coeff of Catie 12.5, Plt Count 159, MPV 12.1 H, Immature Gran % (Auto) 0.300, Neut % (Auto) 76.0 H, Lymph % (Auto) 11.0 L, [place] % (Auto) 6.8, Eos % (Auto) 5.3 H, Baso % (Auto) 0.6, Absolute Neuts (auto) 7.6, Absolute Lymphs (auto) 1.10, Nucleated RBC % 0 03/03/20 19:00: Ethyl Alcohol < 3.0 03/03/20 19:00: Sodium 145, Potassium 4.1, Chloride 112 H, Carbon Dioxide 29.0, Anion Gap 4 L, BUN 23 H, Creatinine 1.47 H, Estim Creat Clear Calc 33.33, Est GFR (MDRD) Af Amer 60, Est GFR (MDRD) Non-Af 49 L, BUN/Creatinine Ratio 15.6, Glucose 119 H, Calcium 8.9, Total Bilirubin 1.00, AST 27, ALT 20, Alkaline Phosphatase 94, Troponin I < 0.015, Total Protein 6.9, Albumin 3.8, Globulin 3.1, Albumin/Globulin Ratio 1.2 03/03/20 20:55: PT 28.3 H, INR 2.7 03/04/20 06:06: PT 25.5 H, INR 2.4 03/04/20 06:06: Sodium 144, Potassium 3.9, Chloride 110 H, Carbon Dioxide 28.0, Anion Gap 6, BUN 19 H, Creatinine 0.97, Estim Creat Clear Calc 50.51, Est GFR (MDRD) Af Amer 96, Est GFR (MDRD) Non-Af 80, BUN/Creatinine Ratio 19.6, Glucose 110 H, Calcium 9.1, TSH 1.96 03/04/20 07:23: Vitamin B12 642 03/04/20 11:46: POC Glucose 110 Current Medications Acetaminophen (Tylenol) 1,000 mg PO BID PRN PRN PRN Reason: FEVER Ascorbic Acid (Vitamin C) 500 mg PO DAILY [facility] Last Admin: 03/04/20 07:39 Dose: 500 mg Documented by: Aspirin (Ecotrin) 81 mg PO DAILY@0800 [facility] Last Admin: 03/04/20 07:39 Dose: 81 mg Documented by: Atorvastatin Calcium (Lipitor) 80 mg PO QHS [facility] Last Admin: 03/03/20 23:13 Dose: 80 mg Documented by: Carbidopa/Levodopa (Sinemet) 1 tablet PO TIDAC [facility] Last Admin: 03/04/20 11:28 Dose: Not Given Documented by: Dextrose (D50w Syringe) 0 gm IV X1 PRN; Protocol PRN Reason: Hypoglycemia Glucagon () 1 mg IM .X1 PRN PRN Reason: Hypoglycemia Hydralazine HCl (Apresoline Iv) 5 mg IV Q4H PRN PRN PRN Reason: SBP > 160 Last Admin: 03/04/20 02:17 Dose: 5 mg Documented by: Hydrocortisone (Hytone) 1 applic TOPICAL 4X/DAY PRN PRN; Protocol PRN Reason: ITCHING Sodium Chloride () 1,000 mls @ 100 mls/hr IV .Q10H [facility] Last Admin: 03/04/20 09:29 Dose: 100 mls/hr Documented by: Sodium Chloride () 250 mls @ 15 mls/hr IV .[id number] PRN PRN Reason: Saline Flush Sodium Chloride () 250 mls @ 15 mls/hr IV .[id number] PRN PRN Reason: Additional IVPB Infusion Latanoprost (Xalatan Opthalmic) 1 drop OPHTHALMIC QHS [facility] Last Admin: 03/03/20 23:12 Dose: 1 drop Documented by: Memantine (Namenda) 10 mg PO BID [facility] Last Admin: 03/04/20 07:40 Dose: 10 mg Documented by: Metoprolol Tartrate (Lopressor (Beta Prasad)) 50 mg PO BID [facility] Last Admin: 03/04/20 07:39 Dose: 50 mg Documented by: Multivitamins (Multivitamin) 1 tablet PO DAILY@0800 [facility] Last Admin: 03/04/20 07:39 Dose: 1 tablet Documented by: Nutritional Formula (Lactose Free) (Ensure Enlive) 120 ml PO 4X/DAY [facility] Last Admin: 03/04/20 07:38 Dose: Not Given Documented by: Ondansetron HCl (Zofran) 4 mg IV Q8H PRN PRN PRN Reason: NAUSEA/VOMITING Pantoprazole Sodium (Protonix) 40 mg PO DAILY [facility] Last Admin: 03/04/20 07:39 Dose: 40 mg Documented by: Quetiapine Fumarate (Seroquel) 50 mg PO DAILY@1800 [facility] Sodium Chloride () 10 - 40 ml IV UD PRN PRN Reason: SALINE FLUSH Warfarin Sodium (Coumadin (Pbkc)) 10 mg PO MoTuWeThFr@1700 [facility] Warfarin Sodium (Coumadin (Pbkc)) 8 mg PO SuSa@1700 [facility] Medical Necessity - Tobacco Use Smoking Status: Former smoker Assessment/Plan All Active Problems (Last Reviewed 03/03/20 @ 22:[address] Roscoe Deutsch MD) Acute encephalopathy (Acute) OLGA (acute kidney injury) (Acute) Dehydration (Acute) Agitation (Acute) 1. 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 Patient was mildly dehydrated on admission with acute kidney injury however agitation/behavioral disturbances have continued despite correction of dehydration/acute kidney injury. Urinalysis unremarkable. Tox screen negative. Brain CT without acute findings. Chest x-ray without acute findings. Patient was recently started on Seroquel 02/29/2020 by his neurologist, Dr. Esteves. Will increase to twice daily Seroquel dosing. We will continue PRN Haldol for agitation. Soft four-point restraints and sitter in place for patient safety. We will continue to reevaluate per protocol. Patient will require Nataliya psych evaluation. Continue home carbidopa/levodopa, memantine. 2. Acute kidney injury-resolved. 3. Aortic valve disease status post mechanical aortic valve replacement 4. Hypertension-stable, continue home lisinopril, metoprolol regimen. PRN hydralazine for systolic blood pressure greater than 160. 5. Hyperlipidemia-continue statin. DVT prophylaxis- coumadin Discharge planning: Patient is medically cleared for psychiatric evaluation. Will consult Nataliya psych/crisis for eval. This patient was seen by SUMAN Villanueva under the supervision of Dr. Greene. <Rody Greene - Last Filed: 03/04/20 14:16> - Physical Exam Vitals/I&O's: Vital Signs Temp Pulse Resp BP Pulse Ox 98.7 F 86 20 H 142/69 H 96 03/04/20 11:40 03/04/20 11:40 03/04/20 11:40 03/04/20 11:40 03/04/20 11:40 Oxygen Delivery Method Room Air Weight: 181 lb Body Mass Index (BMI) 32.1 Intake and Output for Last 24 Hours 03/02/20 03/03/20 03/04/20 23:59 23:59 23:59 Intake Total 120 / 120 1240 / 1240 Output Total 150 / 150 300 / 300 Balance -30 / -30 940 / 940 Laboratory Results 03/03/20 18:50: Urine Opiates Screen NEGATIVE, Urine Methadone Screen NEGATIVE, Ur Barbiturates Screen NEGATIVE, Ur Phencyclidine Scrn NEGATIVE, Ur Amphetamines Screen NEGATIVE, U Methamphetamin-MDMA NEGATIVE, U Benzodiazepines Scrn NEGATIVE, Urine Cocaine Screen NEGATIVE, U Cannabinoids Screen NEGATIVE, Ur Drug Screen Comment 03/03/20 18:50: Urine Color Yellow, Urine Clarity Clear, Urine pH 5.0, Ur Specific [place] 1.020, Urine Protein 15 H, Urine Glucose (UA) Normal, Urine Ketones 5 H, Urine Occult Blood 10 H, Urine Nitrite Negative, Urine Bilirubin Negative, Urine Urobilinogen 4 H, Ur Leukocyte Esterase Negative, Urine RBC 0-5 SEEN, Urine WBC 0-5 SEEN, Ur Squamous Epith Cells 0-5 SEEN, Urine Bacteria 0 SEEN, Hyaline Casts 10-25 SEEN, Urine Mucus 0 SEEN 03/03/20 19:00: WBC 10.0, RBC 4.08 L, Hgb 12.5 L, Hct 37.9 L, MCV 92.9, MCH 30.6, MCHC 33.0, RDW Std Deviation 42.3, RDW Coeff of Catie 12.5, Plt Count 159, MPV 12.1 H, Immature Gran % (Auto) 0.300, Neut % (Auto) 76.0 H, Lymph % (Auto) 11.0 L, [place] % (Auto) 6.8, Eos % (Auto) 5.3 H, Baso % (Auto) 0.6, Absolute Neuts (auto) 7.6, Absolute Lymphs (auto) 1.10, Nucleated RBC % 0 03/03/20 19:00: Ethyl Alcohol < 3.0 03/03/20 19:00: Sodium 145, Potassium 4.1, Chloride 112 H, Carbon Dioxide 29.0, Anion Gap 4 L, BUN 23 H, Creatinine 1.47 H, Estim Creat Clear Calc 33.33, Est GFR (MDRD) Af Amer 60, Est GFR (MDRD) Non-Af 49 L, BUN/Creatinine Ratio 15.6, Glucose 119 H, Calcium 8.9, Total Bilirubin 1.00, AST 27, ALT 20, Alkaline Phosphatase 94, Troponin I < 0.015, Total Protein 6.9, Albumin 3.8, Globulin 3.1, Albumin/Globulin Ratio 1.2 03/03/20 20:55: PT 28.3 H, INR 2.7 03/04/20 06:06: PT 25.5 H, INR 2.4 03/04/20 06:06: Sodium 144, Potassium 3.9, Chloride 110 H, Carbon Dioxide 28.0, Anion Gap 6, BUN 19 H, Creatinine 0.97, Estim Creat Clear Calc 50.51, Est GFR (MDRD) Af Amer 96, Est GFR (MDRD) Non-Af 80, BUN/Creatinine Ratio 19.6, Glucose 110 H, Calcium 9.1, TSH 1.96 03/04/20 07:23: Vitamin B12 642 03/04/20 11:46: POC Glucose 110 Current Medications Acetaminophen (Tylenol) 1,000 mg PO BID PRN PRN PRN Reason: FEVER Ascorbic Acid (Vitamin C) 500 mg PO DAILY [facility] Last Admin: 03/04/20 07:39 Dose: 500 mg Documented by: Aspirin (Ecotrin) 81 mg PO DAILY@0800 [facility] Last Admin: 03/04/20 07:39 Dose: 81 mg Documented by: Atorvastatin Calcium (Lipitor) 80 mg PO QHS [facility] Last Admin: 03/03/20 23:13 Dose: 80 mg Documented by: Carbidopa/Levodopa (Sinemet) 1 tablet PO TIDAC [facility] Last Admin: 03/04/20 11:28 Dose: Not Given Documented by: Dextrose (D50w Syringe) 0 gm IV X1 PRN; Protocol PRN Reason: Hypoglycemia Glucagon () 1 mg IM .X1 PRN PRN Reason: Hypoglycemia Hydralazine HCl (Apresoline Iv) 5 mg IV Q4H PRN PRN PRN Reason: SBP > 160 Last Admin: 03/04/20 02:17 Dose: 5 mg Documented by: Hydrocortisone (Hytone) 1 applic TOPICAL 4X/DAY PRN PRN; Protocol PRN Reason: ITCHING Sodium Chloride () 1,000 mls @ 100 mls/hr IV .Q10H [facility] Last Admin: 03/04/20 09:29 Dose: 100 mls/hr Documented by: Sodium Chloride () 250 mls @ 15 mls/hr IV .[id number] PRN PRN Reason: Saline Flush Sodium Chloride () 250 mls @ 15 mls/hr IV .[id number] PRN PRN Reason: Additional IVPB Infusion Latanoprost (Xalatan Opthalmic) 1 drop OPHTHALMIC QHS [facility] Last Admin: 03/03/20 23:12 Dose: 1 drop Documented by: Memantine (Namenda) 10 mg PO BID [facility] Last Admin: 03/04/20 07:40 Dose: 10 mg Documented by: Metoprolol Tartrate (Lopressor (Beta Prasad)) 50 mg PO BID [facility] Last Admin: 03/04/20 07:39 Dose: 50 mg Documented by: Multivitamins (Multivitamin) 1 tablet PO DAILY@0800 [facility] Last Admin: 03/04/20 07:39 Dose: 1 tablet Documented by: Nutritional Formula (Lactose Free) (Ensure Enlive) 120 ml PO 4X/DAY [facility] Last Admin: 03/04/20 07:38 Dose: Not Given Documented by: Ondansetron HCl (Zofran) 4 mg IV Q8H PRN PRN PRN Reason: NAUSEA/VOMITING Pantoprazole Sodium (Protonix) 40 mg PO DAILY [facility] Last Admin: 03/04/20 07:39 Dose: 40 mg Documented by: Quetiapine Fumarate (Seroquel) 50 mg PO BID [facility] Sodium Chloride () 10 - 40 ml IV UD PRN PRN Reason: SALINE FLUSH Warfarin Sodium (Coumadin (Pbkc)) 10 mg PO MoTuWeThFr@1700 [facility] Warfarin Sodium (Coumadin (Pbkc)) 8 mg PO SuSa@1700 [facility] Assessment/Plan Patient seen by Mara DOc under my supervision Patient was admitted with a complaint of altered mental status, with behavioural disturbances. He was admitted with complaint of increased agitations with associated visual hallucinations. His Sinemet dose had been increased recently by his neurologist but hallucinations had worsened. Patient became very agitated this morning and required 4 people to restrain him. He eventually needed four-point soft restraints. O/e: Vital Signs Temp Pulse Resp BP Pulse Ox 98.7 F 86 20 H 142/69 H 96 03/04/20 11:40 03/04/20 11:40 03/04/20 11:40 03/04/20 11:40 03/04/20 11:40 General: Alert, Confused, - - Agitated, combative HEENT: Atraumatic, PERRLA, EOMI, Normocephalic Oral: Dry Mucosa Neck: Supple, No JVD, Negative Carotid Bruits Lungs: Clear to auscultation, Diminished Cardiovascular: Regular rate, Regular Rhythm, Normal S1, Normal S2, No murmurs Abdomen: Bowel Sounds Present, Soft, Non Tender, Non-Distended Extremities: No clubbing, No cyanosis, No edema, Capillary Refill Less than 3 Seconds Skin: No rashes, No breakdown Musculoskeletal: No Tenderness to Palpation of Joints or Extremities Neurological: Cranial nerves II-XII grossly intact Psych/Mental Status: Agitated, Impulsive, Irrational Behavior, Restless Plan is to get Nataliya psych consult. Creatinine has trended down. PT/OT on board. Will likely need placement. Rest as per [facility] DOC's note, which I have reviewed and endorsed. Inpatient E&M: [id number] Subs Hosp L2
--- NOTE | 2020-03-04 14:44 | NURSING ---
Pt currently is cooperative and will test to see if it is ok to remove restraints. VETERINARY TECHNICIAN ASSISTANT as bedside. Pt took ice cream and ensure.
[2020-03-04 18:36] LABS: Bedside Glucose 121 mg/dL (70-110)
[2020-03-04] MEDS: QUEtiapine 25 MG Tablet 50 MG PO (21:09)
[2020-03-04] MEDS: Atorvastatin Calcium 80 MG Tablet PO (21:15)
[2020-03-04 21:26] LABS: Bedside Glucose 119 mg/dL (70-110)
--- NOTE | 2020-03-04 22:38 | NURSING ---
[facility] called in to check on this individual. He was going to try to talk to him on the phone but when I went in the room, the TREE SURGEON HELPER that was sitting with the pt stated he was starting to fall asleep. This information was conveyed to Steven. He said they will try to assess in the am.
[2020-03-05] VITALS (9 sets, daily range): BP systolic 133–177; BP diastolic 64–84; PULSE 72–89; RESP 16–20; TEMP 36.6–37.1; O2SAT 92–98
[2020-03-05] MEDS: 0.9% Normal Saline 1,000 ML 100 ML IV ×2 (04:14→14:05)
[2020-03-05 06:45] LABS: Bedside Glucose 96 mg/dL (70-110)
--- NOTE | 2020-03-05 07:59 | NURSING ---
pt agitated this am, swinging arms to hit nursing, grabbing arms of staff and spitting at staff. unable to get vitals, assess or give pt medications. pt sitting in alicia chair. quiet when not interrupted. sitter at bedside.
--- NOTE | 2020-03-05 10:18 | NURSING ---
talked with geovani update given
--- NOTE | 2020-03-05 10:22 | PCM.PROGNOTE ---
<Mara Beal - Last Filed: 03/05/20 10:26> Patient Problems: Active and Suspected Problems (Last Reviewed 03/03/20 @ 22:[address] Roscoe Deutsch MD) Acute encephalopathy (Acute) OLGA (acute kidney injury) (Acute) Dehydration (Acute) Agitation (Acute) Subjective: Patient seen and examined. Resting in chair, intermittently mumbling however no evidence of aggressive behavior. Sitter at bedside states patient has been spitting in this morning and refused to take his morning medications. Soft four-point restraints were removed yesterday afternoon and patient has not required further physical restraints. Awaiting [facility] acceptance. - Physical Exam Vitals/I&O's: Vital Signs Temp Pulse Resp BP Pulse Ox 98.6 F 89 18 133/64 H 92 03/05/20 08:03 03/05/20 08:03 03/05/20 04:10 03/05/20 04:10 03/05/20 04:10 Oxygen Delivery Method Room Air Weight: 180 lb 15.992 oz Body Mass Index (BMI) 32.1 Intake and Output for Last 24 Hours 03/03/20 03/04/20 03/05/20 23:59 23:59 23:59 Intake Total 120 / 120 2418.33 / 2538.33 1086.67 / 1086.67 Output Total 150 / 150 300 / 600 300 / 300 Balance -30 / -30 2118.33 / 1938.33 786.67 / 786.67 General: No apparent distress, Confused, Disoriented HEENT: Atraumatic, PERRLA, EOMI, Normocephalic Oral: Dry Mucosa Neck: Supple, No JVD, Negative Carotid Bruits Lungs: Clear to auscultation, Normal air movement Cardiovascular: Regular rate, No murmurs Abdomen: Bowel Sounds Present, Soft, Non Tender Extremities: No clubbing, No cyanosis, No edema, Capillary Refill Less than 3 Seconds Skin: No rashes, No breakdown Musculoskeletal: No Tenderness to Palpation of Joints or Extremities Neurological: Cranial nerves II-XII grossly intact, Neuro grossly intact Psych/Mental Status: Impulsive, Irrational Behavior Laboratory Results 03/04/20 11:46: POC Glucose 110 03/04/20 17:14: POC Glucose 121 H 03/04/20 21:22: POC Glucose 119 H 03/05/20 06:23: PT 31.0 H, INR 3.0 03/05/20 06:26: POC Glucose 96 Current Medications Acetaminophen (Tylenol) 1,000 mg PO BID PRN PRN PRN Reason: FEVER Ascorbic Acid (Vitamin C) 500 mg PO DAILY [facility] Last Admin: 03/05/20 07:40 Dose: Not Given Documented by: Aspirin (Ecotrin) 81 mg PO DAILY@0800 [facility] Last Admin: 03/05/20 07:40 Dose: Not Given Documented by: Atorvastatin Calcium (Lipitor) 80 mg PO QHS [facility] Last Admin: 03/04/20 21:15 Dose: 80 mg Documented by: Carbidopa/Levodopa (Sinemet) 1 tablet PO TIDAC [facility] Last Admin: 03/05/20 07:39 Dose: Not Given Documented by: Dextrose (D50w Syringe) 0 gm IV X1 PRN; Protocol PRN Reason: Hypoglycemia Glucagon () 1 mg IM .X1 PRN PRN Reason: Hypoglycemia Haloperidol Lactate (Haldol) 2 mg IM Q4H PRN PRN PRN Reason: AGITATION Last Admin: 03/04/20 16:56 Dose: 2 mg Documented by: Hydralazine HCl (Apresoline Iv) 5 mg IV Q4H PRN PRN PRN Reason: SBP > 160 Last Admin: 03/04/20 02:17 Dose: 5 mg Documented by: Hydrocortisone (Hytone) 1 applic TOPICAL 4X/DAY PRN PRN; Protocol PRN Reason: ITCHING Sodium Chloride () 1,000 mls @ 100 mls/hr IV .Q10H [facility] Last Admin: 03/05/20 04:14 Dose: 100 mls/hr Documented by: Sodium Chloride () 250 mls @ 15 mls/hr IV .[id number] PRN PRN Reason: Saline Flush Sodium Chloride () 250 mls @ 15 mls/hr IV .[id number] PRN PRN Reason: Additional IVPB Infusion Latanoprost (Xalatan Opthalmic) 1 drop OPHTHALMIC QHS [facility] Last Admin: 03/04/20 22:41 Dose: Not Given Documented by: Memantine (Namenda) 10 mg PO BID [facility] Last Admin: 03/05/20 07:40 Dose: Not Given Documented by: Metoprolol Tartrate (Lopressor (Beta Prasad)) 50 mg PO BID [facility] Last Admin: 03/05/20 07:40 Dose: Not Given Documented by: Multivitamins (Multivitamin) 1 tablet PO DAILY@0800 [facility] Last Admin: 03/05/20 07:40 Dose: Not Given Documented by: Nutritional Formula (Lactose Free) (Ensure Enlive) 120 ml PO 4X/DAY [facility] Last Admin: 03/05/20 10:02 Dose: Not Given Documented by: Ondansetron HCl (Zofran) 4 mg IV Q8H PRN PRN PRN Reason: NAUSEA/VOMITING Pantoprazole Sodium (Protonix) 40 mg PO DAILY [facility] Last Admin: 03/05/20 07:40 Dose: Not Given Documented by: Quetiapine Fumarate (Seroquel) 50 mg PO BID [facility] Last Admin: 03/05/20 07:42 Dose: Not Given Documented by: Sodium Chloride () 10 - 40 ml IV UD PRN PRN Reason: SALINE FLUSH Warfarin Sodium (Coumadin (Pbkc)) 10 mg PO MoTuWeThFr@1700 [facility] Last Admin: 03/04/20 16:45 Dose: 10 mg Documented by: Warfarin Sodium (Coumadin (Pbkc)) 8 mg PO SuSa@1700 [facility] Medical Necessity - Tobacco Use Smoking Status: Former smoker Assessment/Plan All Active Problems (Last Reviewed 03/03/20 @ 22:[address] Roscoe Deutsch MD) Acute encephalopathy (Acute) OLGA (acute kidney injury) (Acute) Dehydration (Acute) Agitation (Acute) 1. 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 Patient was mildly dehydrated on admission with acute kidney injury however agitation/behavioral disturbances have continued despite correction of dehydration/acute kidney injury. Urinalysis unremarkable. Tox screen negative. Brain CT without acute findings. Chest x-ray without acute findings. Patient was recently started on Seroquel 02/29/2020 by his neurologist, Dr. Esteves. Will increase to twice daily Seroquel dosing. We will continue PRN Haldol for agitation. Sitter at bedside for patient safety. Patient is undergoing [facility] evaluation/facility acceptance pending. Continue home carbidopa/levodopa, memantine. 2. Acute kidney injury-resolved. 3. Aortic valve disease status post mechanical aortic valve replacement 4. Hypertension-stable, continue home lisinopril, metoprolol regimen. PRN hydralazine for systolic blood pressure greater than 160. 5. Hyperlipidemia-continue statin. DVT prophylaxis- coumadin Discharge planning: Patient is medically cleared for psychiatric evaluation. [facility] for eval. This patient was seen by SUMAN Villanueva under the supervision of Dr. Greene. <RamonaRody Maria Victoria - Last Filed: 03/05/20 15:54> - Physical Exam Vitals/I&O's: Vital Signs Temp Pulse Resp BP Pulse Ox 97.8 F 77 16 168/77 H 98 03/05/20 15:20 03/05/20 15:20 03/05/20 15:20 03/05/20 15:20 03/05/20 15:20 Oxygen Delivery Method Room Air Weight: 180 lb 15.992 oz Body Mass Index (BMI) 32.1 Intake and Output for Last 24 Hours 03/03/20 03/04/20 03/05/20 23:59 23:59 23:59 Intake Total 120 / 120 2418.33 / 2538.33 2071.67 / 2071.67 Output Total 150 / 150 300 / 600 825 / 825 Balance -30 / -30 2118.33 / 1938.33 1246.67 / 1246.67 Laboratory Results 03/04/20 17:14: POC Glucose 121 H 03/04/20 21:22: POC Glucose 119 H 03/05/20 06:23: PT 31.0 H, INR 3.0 03/05/20 06:26: POC Glucose 96 Current Medications Acetaminophen (Tylenol) 1,000 mg PO BID PRN PRN PRN Reason: FEVER Ascorbic Acid (Vitamin C) 500 mg PO DAILY [facility] Last Admin: 03/05/20 07:40 Dose: Not Given Documented by: Aspirin (Ecotrin) 81 mg PO DAILY@0800 [facility] Last Admin: 03/05/20 07:40 Dose: Not Given Documented by: Atorvastatin Calcium (Lipitor) 80 mg PO QHS [facility] Last Admin: 03/04/20 21:15 Dose: 80 mg Documented by: Carbidopa/Levodopa (Sinemet) 1 tablet PO TIDAC [facility] Last Admin: 03/05/20 15:14 Dose: 1 tablet Documented by: Dextrose (D50w Syringe) 0 gm IV X1 PRN; Protocol PRN Reason: Hypoglycemia Glucagon () 1 mg IM .X1 PRN PRN Reason: Hypoglycemia Haloperidol Lactate (Haldol) 2 mg IM Q4H PRN PRN PRN Reason: AGITATION Last Admin: 03/04/20 16:56 Dose: 2 mg Documented by: Hydralazine HCl (Apresoline Iv) 5 mg IV Q4H PRN PRN PRN Reason: SBP > 160 Last Admin: 03/04/20 02:17 Dose: 5 mg Documented by: Hydrocortisone (Hytone) 1 applic TOPICAL 4X/DAY PRN PRN; Protocol PRN Reason: ITCHING Sodium Chloride () 1,000 mls @ 100 mls/hr IV .Q10H [facility] Last Admin: 03/05/20 14:05 Dose: 100 mls/hr Documented by: Sodium Chloride () 250 mls @ 15 mls/hr IV .[id number] PRN PRN Reason: Saline Flush Sodium Chloride () 250 mls @ 15 mls/hr IV .[id number] PRN PRN Reason: Additional IVPB Infusion Latanoprost (Xalatan Opthalmic) 1 drop OPHTHALMIC QHS [facility] Last Admin: 03/04/20 22:41 Dose: Not Given Documented by: Memantine (Namenda) 10 mg PO BID [facility] Last Admin: 03/05/20 11:05 Dose: 10 mg Documented by: Metoprolol Tartrate (Lopressor (Beta Prasad)) 50 mg PO BID [facility] Last Admin: 03/05/20 11:04 Dose: 50 mg Documented by: Multivitamins (Multivitamin) 1 tablet PO DAILY@0800 [facility] Last Admin: 03/05/20 07:40 Dose: Not Given Documented by: Nutritional Formula (Lactose Free) (Ensure Enlive) 120 ml PO 4X/DAY [facility] Last Admin: 03/05/20 14:05 Dose: Not Given Documented by: Ondansetron HCl (Zofran) 4 mg IV Q8H PRN PRN PRN Reason: NAUSEA/VOMITING Pantoprazole Sodium (Protonix) 40 mg PO DAILY [facility] Last Admin: 03/05/20 07:40 Dose: Not Given Documented by: Quetiapine Fumarate (Seroquel) 50 mg PO BID [facility] Last Admin: 03/05/20 11:05 Dose: 50 mg Documented by: Sodium Chloride () 10 - 40 ml IV UD PRN PRN Reason: SALINE FLUSH Warfarin Sodium (Coumadin (Pbkc)) 10 mg PO MoTuWeThFr@1700 [facility] Last Admin: 03/05/20 15:18 Dose: 10 mg Documented by: Warfarin Sodium (Coumadin (Pbkc)) 8 mg PO SuSa@1700 [facility] Assessment/Plan Patient seen by SUMAN Villanueva under my supervision. He was lying calmly in bed but subsequently got very agitated when I tried to talk to him and examined him. He said he did not trust anybody and did not want to speak to anybody will be examined. He required four-point restraints yesterday but these have subsequently been removed. Patient is refusing his meds. To do review of systems were examined patient as he refused. Elevated creatinine has trended down. Plan is to have geripsych evaluation for possible placement as he cannot go home in this state. Patient has sitter at bedside. Patient medically cleared for psychiatric evaluation. Rest as per SUMAN Villanueva's notes which I have reviewed and endorsed. Inpatient E&M: 25742 Subs Hosp L2
[2020-03-05] MEDS: Metoprolol Tartrate 50 MG Tablet PO ×2 (11:04→20:03)
[2020-03-05] MEDS: Memantine Hydrochloride 10 MG Tablet PO ×2 (11:05→20:03)
[2020-03-05] MEDS: Carbidopa/Levodopa 25/100 Tablet PO ×2 (11:05→15:14)
[2020-03-05] MEDS: QUEtiapine 25 MG Tablet 50 MG PO ×2 (11:05→20:04)
--- NOTE | 2020-03-05 11:57 | CASEMGMT ---
Social Work Note SW updated that pt's daughter Vivienne is requesting to speak to this worker. SW introduced self and role at [facility] to Vivienne. Vivienne asked for update regarding pt going to [facility]. SW explained that [facility] working on getting pt placed to [facility] and at this time, has not found a facility for pt but should still be working on placement for pt. Pt asked what this worker was doing to assist with placement. SW explained that at this time, this worker is hands off regarding [facility] placement as [facility] is working [facility] placement. Vivienne asked if she would be updated once pt is accepted to facility and this worker informed Vivienne that either [facility] or staff at [facility] will update pt's family once pt is transferred to psych facility pending acceptance. Vivienne states understanding. Vivienne Fam REFRIGERATOR CAR ICER, HYDRAULIC ELEVATOR CONSTRUCTOR
--- NOTE | 2020-03-05 15:46 | NURSING ---
per nursing paper documentation. restraints were removed 03/04/2020 @ [id number]
[2020-03-05] MEDS: Acetaminophen 500 MG Tablet 1000 MG PO (19:58)
[2020-03-05] MEDS: Atorvastatin Calcium 80 MG Tablet PO (20:04)
[2020-03-05] MEDS: Latanoprost 0.005% 1 Bottle 1 DRP OPHTHALMIC (20:12)
[2020-03-05 20:21] LABS: Bedside Glucose 82 mg/dL (70-110)
--- NOTE | 2020-03-05 21:00 | NURSING ---
spoke with Meli from [facility]. Meli reports per [facility] they were willing to accept pt but when they called the pt's she was confused and said she would have to talk it over with her family and let them know tomorrow. Meli requested a copy of the pink slip be faxed to her and she would forward it on to [facility]. pharmacist in charge owner Dinora faxed copy of pink slip to number provided by Meli.
[2020-03-05] MEDS: hydrALAZINE 20 MG/ML Vial 5 MG IV (22:31)
[2020-03-05] MEDS: 0.9% Saline Lock 10 ML Syringe IV (22:32)
[2020-03-06] MEDS: 0.9% Normal Saline 1,000 ML 100 ML IV (00:09)
[2020-03-06 04:00] VITALS: BP 130/75; PULSE 92; RESP 20; TEMP 37.2; O2SAT 95
[2020-03-06] MEDS: Carbidopa/Levodopa 25/100 Tablet PO (06:11)
[2020-03-06 06:21] LABS: Bedside Glucose 89 mg/dL (70-110)
--- NOTE | 2020-03-06 06:25 | NURSING ---
[facility] called to see if this pt was still here.
--- NOTE | 2020-03-06 06:29 | NURSING ---
[facility] called and stated that [facility] has a room for this pt. The nurse to nurse report number is [phone]. They will give us the name of the accepting MD at that time.
--- NOTE | 2020-03-06 06:44 | NURSING ---
report given to EDMUND Jim at [facility]
[2020-03-06 07:03] LABS: Prothrombin Time (Protime)PT. 40.9 SECONDS (11.7-14.9)
[2020-03-06 07:04] LABS: International Normalized Ratio 4.3
--- NOTE | 2020-03-06 08:33 | CASEMGMT ---
Social Work Note Per pmp project manager questions, pt has completed HCPOA and LW but hasn't provided copy to [facility] and unable to bring in copies. Vivienne Fam SPOT WELDER BODY ASSEMBLY, RUSSET REPAIRER
--- NOTE | 2020-03-06 08:38 | NURSING ---
Spoke with Yaneth SHAFFER informed her INR is 4.3, PT 40.9, and that Mara CEDILLO, would hold the Coumadin today and recheck him. He will be admitted to care home unit. Accepting physician is Dr Frances. Unit phone number is [phone]
[2020-03-06] MEDS: Memantine Hydrochloride 10 MG Tablet PO (08:46)
[2020-03-06] MEDS: Multivitamins,Therapeutic Tablet 1 TABLET PO (08:46)
[2020-03-06 08:47] VITALS: PULSE 94
[2020-03-06] MEDS: Pantoprazole Sodium 40 MG Tablet PO (08:47)
[2020-03-06] MEDS: Metoprolol Tartrate 50 MG Tablet PO (08:47)
[2020-03-06] MEDS: QUEtiapine 25 MG Tablet 50 MG PO (08:47)
[2020-03-06] MEDS: Ascorbic Acid 500 MG Tablet PO (08:48)
[2020-03-06 08:54] VITALS: BP 153/80; PULSE 94; RESP 20; TEMP 37.1; O2SAT 95
--- NOTE | 2020-03-06 09:12 | PCM.DC ---
- Discharge Diagnoses Current Active Problems: Current Active and Chronic Problems (Last Reviewed 03/03/20 @ 22:[address] Roscoe Deutsch MD) 1. 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 2. Acute kidney injury-resolved. 3. Aortic valve disease status post mechanical aortic valve replacement 4. Hypertension 5. Hyperlipidemia You will use the following diet at home:: No restrictions Discharge Activity: Return to Normal Activity Additional Instructions: HOLD Coumadin regimen pending repeat INR. Resume coumadin when INR less than 3.5. INR at discharge 4.3. Patient has mechanical valve, goal INR 2.5-3.5. Allergies/Adverse Reactions: Allergies antifungal cream Adverse Reaction (Uncoded 03/03/20 19:03) blisters Medications to take at Discharge Aspirin E.C. [Ecotrin] 81 mg PO DAILY@0800 01/24/16 Multivitamin [Daily Multiple Vitamin] 1 ea PO DAILY 01/24/16 acetaminophen 500 mg tablet 1,000 mg PO BID PRN tab 01/20/18 hydrocortisone 2.5 % topical cream 1 applic TOPICAL BID-QID PRN 01/20/18 vit C 250 mg-E 200 unit-zinc 40 mg-copper 1 [id number] capsule 1 tab PO ONCE cap 01/25/18 memantine 10 mg tablet 10 mg PO BID 01/26/19 atorvastatin 80 mg tablet 80 mg PO DAILY #90 tab 03/13/19 lisinopril 20 mg tablet 20 mg PO BID #180 tab 03/13/19 metoprolol tartrate 50 mg tablet 50 mg PO BID #180 tab 03/13/19 omeprazole 20 mg capsule,delayed release 40 mg PO DAILY #180 cap 03/13/19 warfarin 10 mg tablet 10 mg PO .COMPLEX #90 tab 06/13/19 latanoprost 0.005 % eye drops 1 drp OPHTHALMIC QHS 01/30/20 Carbidopa/Levodopa [Carbidopa-Levodopa 25-100 Tab] 1 ea PO TID 03/03/20 Warfarin [Coumadin] 8 mg PO QWEEK 03/03/20 Warfarin [Coumadin] 8 mg PO QWEEK 03/03/20 Quetiapine Fumarate [Seroquel] 50 mg PO BID tablet 03/06/20 Primary Care Physician: NOT,DEFINED [NON-STAFF] - Please follow up with your Primary Care Physician in: 1 Week following DC from [facility] Test Results: Test results from this visit will be discussed in further detail at your follow-up appointment, if applicable. Proposed Discharge Date: 03/06/20
--- NOTE | 2020-03-06 09:17 | PCM.DC.SUM ---
Discharge Date and Diagnosis Date of Admission: 03/03/20 Date of Discharge: 03/06/20 - Primary Discharge Diagnosis Acute Problems: Active Problems (Last Reviewed 03/03/20 @ 22:[address] Roscoe Deutsch MD) 1. 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 2. Acute kidney injury-resolved. 3. Aortic valve disease status post mechanical aortic valve replacement on anticoagulation with Coumadin 4. Hypertension 5. Hyperlipidemia - Secondary Discharge Diagnosis Chronic Problems: Chronic Problems (Last Reviewed 03/03/20 @ 22:[address] Roscoe Deutsch MD) Paroxysmal atrial fibrillation (Chronic) Non-rheumatic aortic stenosis (Chronic) History of mechanical aortic valve replacement (Chronic 01/05/01) [facility] Amol 21 mm Secondary pulmonary arterial hypertension (Chronic) Essential (primary) hypertension (Chronic) Hyperlipidemia (Chronic) intermediate card tender (current) use of anticoagulants (Chronic) Hospital Course and Treatment Imaging Results: Diagnostic Data Brain CT 03/03/20 18:40 IMPRESSION: 1. No acute findings. 2. Chronic left cerebellar infarct. 3. Microvascular ischemia. Atrophy. Electronically Signed: Makenzie Hollins MD at 19:56 EDT Tel , Service support , Chest X-Ray 03/03/20 19:10 IMPRESSION: No acute findings. Electronically Signed: Makenzie Hollins MD at 20:10 EDT Tel , Service support , Consultations 03/04/20 13:57 Consult: Mental Health/Crisis Routine Reason for consult?: acute encephalopathy -medically cleared. Date Notified:: 03/04/20 Time Notified:: 13:57 Operations: None Procedures: None Summary of Care Provided: The patient is a 79 year old M admitted 03/03/2020 due to agitation. 1. 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 Patient was mildly dehydrated on admission with acute kidney injury however agitation/behavioral disturbances have continued despite correction of dehydration/acute kidney injury. Urinalysis unremarkable. Tox screen negative. Brain CT without acute findings. Chest x-ray without acute findings. Patient was recently started on Seroquel 02/29/2020 by his neurologist, Dr. Esteves. Increased to twice daily Seroquel dosing. Will continue PRN Haldol for agitation which has been effective. Sitter at bedside for patient safety. Continue home carbidopa/levodopa, memantine. Patient will be discharged to [facility] snf unit for Nataliya psych evaluation and treatment. 2. Acute kidney injury-resolved. 3. Aortic valve disease status post mechanical aortic valve replacement-INR at discharge 4.3. Goal INR 2.5-3.5 given mechanical aortic valve. Hold Coumadin and trend INR at discharge facility. May resume Coumadin when INR 3.5 or less. 4. Hypertension-stable, continue home lisinopril, metoprolol regimen. 5. Hyperlipidemia-continue statin. General: No apparent distress, Confused, Disoriented HEENT: Atraumatic, PERRLA, EOMI, Normocephalic Oral: Dry Mucosa Neck: Supple, No JVD, Negative Carotid Bruits Lungs: Clear to auscultation, Normal air movement Cardiovascular: Regular rate, No murmurs Abdomen: Bowel Sounds Present, Soft, Non Tender Extremities: No clubbing, No cyanosis, No edema, Capillary Refill Less than 3 Seconds Skin: No rashes, No breakdown Musculoskeletal: No Tenderness to Palpation of Joints or Extremities Neurological: Cranial nerves II-XII grossly intact, Neuro grossly intact Psych/Mental Status: Impulsive, Irrational Behavior Patient seen and examined prior to discharge. Physical assessment as noted above. Patient is stable for discharge to [facility] for nataliya-psych eval and treatment. This patient was seen by SUMAN Villanueva under the supervision of Dr. Jc. - Physical Exam Vitals/I&O's: Vital Signs Temp Pulse Resp BP Pulse Ox 98.8 F 94 20 H 153/80 H 95 03/06/20 08:54 03/06/20 08:54 03/06/20 08:54 03/06/20 08:54 03/06/20 08:54 Oxygen Delivery Method Room Air Weight: 180 lb 15.992 oz Body Mass Index (BMI) 32.1 Intake and Output for Last 24 Hours 03/04/20 03/05/20 03/06/20 23:59 23:59 23:59 Intake Total 2418.33 / 2538.33 2271.67 / 2321.67 1100 / 1100 Output Total 300 / 600 950 / 1650 1300 / 1300 Balance 2118.33 / 1938.33 1321.67 / 671.67 -200 / -200 Laboratory Results 03/05/20 20:15: POC Glucose 82 03/06/20 05:37: PT 40.9 H, INR 4.3 H* 03/06/20 06:17: POC Glucose 89 Current Medications Acetaminophen (Tylenol) 1,000 mg PO BID PRN PRN PRN Reason: Fever, headache, pain Last Admin: 03/05/20 19:58 Dose: 1,000 mg Documented by: Ascorbic Acid (Vitamin C) 500 mg PO DAILY [facility] Last Admin: 03/06/20 08:48 Dose: 500 mg Documented by: Aspirin (Ecotrin) 81 mg PO DAILY@0800 [facility] Last Admin: 03/06/20 08:46 Dose: Not Given Documented by: Atorvastatin Calcium (Lipitor) 80 mg PO QHS [facility] Last Admin: 03/05/20 20:04 Dose: 80 mg Documented by: Carbidopa/Levodopa (Sinemet) 1 tablet PO TIDAC [facility] Last Admin: 03/06/20 06:11 Dose: 1 tablet Documented by: Dextrose (D50w Syringe) 0 gm IV X1 PRN; Protocol PRN Reason: Hypoglycemia Glucagon () 1 mg IM .X1 PRN PRN Reason: Hypoglycemia Haloperidol Lactate (Haldol) 2 mg IM Q4H PRN PRN PRN Reason: AGITATION Last Admin: 03/04/20 16:56 Dose: 2 mg Documented by: Hydralazine HCl (Apresoline Iv) 5 mg IV Q4H PRN PRN PRN Reason: SBP > 160 Last Admin: 03/05/20 22:31 Dose: 5 mg Documented by: Hydrocortisone (Hytone) 1 applic TOPICAL 4X/DAY PRN PRN; Protocol PRN Reason: ITCHING Sodium Chloride () 1,000 mls @ 100 mls/hr IV .Q10H [facility] Last Admin: 03/06/20 00:09 Dose: 100 mls/hr Documented by: Sodium Chloride () 250 mls @ 15 mls/hr IV .[id number] PRN PRN Reason: Saline Flush Sodium Chloride () 250 mls @ 15 mls/hr IV .[id number] PRN PRN Reason: Additional IVPB Infusion Latanoprost (Xalatan Opthalmic) 1 drop OPHTHALMIC QHS [facility] Last Admin: 03/05/20 20:12 Dose: 1 drop Documented by: Memantine (Namenda) 10 mg PO BID [facility] Last Admin: 03/06/20 08:46 Dose: 10 mg Documented by: Metoprolol Tartrate (Lopressor (Beta Prasad)) 50 mg PO BID [facility] Last Admin: 03/06/20 08:47 Dose: 50 mg Documented by: Multivitamins (Multivitamin) 1 tablet PO DAILY@0800 [facility] Last Admin: 03/06/20 08:46 Dose: 1 tablet Documented by: Nutritional Formula (Lactose Free) (Ensure Enlive) 120 ml PO 4X/DAY [facility] Last Admin: 03/06/20 08:50 Dose: 120 ml Documented by: Ondansetron HCl (Zofran) 4 mg IV Q8H PRN PRN PRN Reason: NAUSEA/VOMITING Pantoprazole Sodium (Protonix) 40 mg PO DAILY [facility] Last Admin: 03/06/20 08:47 Dose: 40 mg Documented by: Quetiapine Fumarate (Seroquel) 50 mg PO BID [facility] Last Admin: 03/06/20 08:47 Dose: 50 mg Documented by: Sodium Chloride () 10 - 40 ml IV UD PRN PRN Reason: SALINE FLUSH Last Admin: 03/05/20 22:32 Dose: 10 ml Documented by: Warfarin Sodium (Coumadin (Pbkc)) 10 mg PO MoTuWeThFr@1700 [facility] Last Admin: 03/05/20 15:18 Dose: 10 mg Documented by: Warfarin Sodium (Coumadin (Pbkc)) 8 mg PO SuSa@1700 [facility] Discharge Activity: Return to Normal Activity Home Medications: Medications to take at Discharge Aspirin E.C. [Ecotrin] 81 mg PO DAILY@0800 01/24/16 Multivitamin [Daily Multiple Vitamin] 1 ea PO DAILY 01/24/16 acetaminophen 500 mg tablet 1,000 mg PO BID PRN tab 01/20/18 hydrocortisone 2.5 % topical cream 1 applic TOPICAL BID-QID PRN 01/20/18 vit C 250 mg-E 200 unit-zinc 40 mg-copper 1 [id number] capsule 1 tab PO ONCE cap 01/25/18 memantine 10 mg tablet 10 mg PO BID 01/26/19 atorvastatin 80 mg tablet 80 mg PO DAILY #90 tab 03/13/19 lisinopril 20 mg tablet 20 mg PO BID #180 tab 03/13/19 metoprolol tartrate 50 mg tablet 50 mg PO BID #180 tab 03/13/19 omeprazole 20 mg capsule,delayed release 40 mg PO DAILY #180 cap 03/13/19 warfarin 10 mg tablet 10 mg PO .COMPLEX #90 tab 06/13/19 latanoprost 0.005 % eye drops 1 drp OPHTHALMIC QHS 01/30/20 Carbidopa/Levodopa [Carbidopa-Levodopa 25-100 Tab] 1 ea PO TID 03/03/20 Warfarin [Coumadin] 8 mg PO QWEEK 03/03/20 Warfarin [Coumadin] 8 mg PO QWEEK 03/03/20 Quetiapine Fumarate [Seroquel] 50 mg PO BID tablet 03/06/20 Primary Care Physician: NOT,DEFINED [NON-STAFF] - Please follow up with your Primary Care Physician in: 1 Week following DC from [facility] Disposition: Psych Hospital or Unit Minutes spent on discharge:: 35 Patient Condition:: Stable Medical Necessity - Tobacco Use Smoking Status: Former smoker Meaningful Use Info Meaningful Use Diagnoses (Choose all that apply): None applicable
[2020-03-06 09:21] VITALS: O2SAT 95
--- NOTE | 2020-03-06 10:50 | PHA.DC.MR ---
Pharmacy Service has performed discharge medication reconciliation for this patient upon transfer to [facility]. The patient's discharge medication list was reviewed for discrepancies and discrepancies were resolved. Home Medications Aspirin E.C. [Ecotrin] 81 mg PO DAILY@0800 01/24/16 Multivitamin [Daily Multiple Vitamin] 1 ea PO DAILY 01/24/16 acetaminophen 500 mg tablet 1,000 mg PO BID PRN tab 01/20/18 hydrocortisone 2.5 % topical cream 1 applic TOPICAL BID-QID PRN 01/20/18 vit C 250 mg-E 200 unit-zinc 40 mg-copper 1 [id number] capsule 1 tab PO DAILY cap 01/25/18 memantine 10 mg tablet 10 mg PO BID 01/26/19 atorvastatin 80 mg tablet 80 mg PO DAILY #90 tab 03/13/19 lisinopril 20 mg tablet 20 mg PO BID #180 tab 03/13/19 metoprolol tartrate 50 mg tablet 50 mg PO BID #180 tab 03/13/19 omeprazole 20 mg capsule,delayed release 40 mg PO DAILY #180 cap 03/13/19 warfarin 10 mg tablet 10 mg PO .COMPLEX #90 tab 06/13/19 latanoprost 0.005 % eye drops 1 drp OPHTHALMIC QHS 01/30/20 Carbidopa/Levodopa [Carbidopa-Levodopa 25-100 Tab] 1 ea PO TID 03/03/20 Quetiapine Fumarate [Seroquel] 50 mg PO BID tab 03/06/20
--- NOTE | 2020-03-06 11:42 | NURSING ---
1030 Paola was updated that pt would be transferred soon, if desires she could meet him to see him at the front entrance.
== END 2020-03-06 11:10 | DRG 57 ==
LOC: ED 18:58 → MS3 03-04 01:16
PROVIDERS: Student in an Organized Health Care Education/Training Program; Admitting Provider Hospitalist; Emergency Provider Emergency Medicine; PCP Family Medicine; Visit Provider Internal Medicine
DX: G20 Parkinson's disease (principal); F02.81 Dementia in other diseases classified elsewhere, unspecified severity, with behavioral disturbance; R45.1 Restlessness and agitation; N17.9 Acute kidney failure, unspecified; I10 Essential (primary) hypertension; I48.0 Paroxysmal atrial fibrillation; I35.0 Nonrheumatic aortic (valve) stenosis; I27.21 Secondary pulmonary arterial hypertension; E78.5 Hyperlipidemia, unspecified; E86.0 Dehydration; Z78.1 Physical restraint status; Z95.2 Presence of prosthetic heart valve; Z79.01 Long term (current) use of anticoagulants; Z79.82 Long term (current) use of aspirin; Z87.891 Personal history of nicotine dependence; Z79.899 Other long term (current) drug therapy
CPT/HCPCS: 36415; 70450; 71045; 80048; 80053; 80307; 80320; 81001; 82607; 82962; 84443; 84484; 85025; 85610; 93005; 97802; 99285; 99406; J7030; A4216; G0480